=== PATIENT | male | born 1935 | race Caucasian/White ===

== ENCOUNTER → 2016-06-22 | Outpatient (CLI) | payer OTHER ==
[~2016-06-22] MED LIST: ANTIVERT/2525 MG PO; ANTIVERT25 MG PO; ASPI-COR81 M1 PO; ASPIRIN81 M1 PO; ASPIRIN81 MG PO; ATARAX25 MG PO; ATENOLOL25 MG PO; AZITHROMYC1 GM/PACKE PO; B12,B-12,B 12500 MC1 PO; BACTRIM DS 8001 TA1 PO; BD ULTRA-FINE I1 DE4 SC; COUMADIN5 M2 PO; COUMADIN5 MG PO; FLOMAX0.4 MG PO; GABAPENTIN300 MG PO; GLUCOPHAGE1000 MG PO; HYDR25T PO; IMDUR60 MG PO; ISOSORBIDE DINI30 MG PO; ISOSORBIDE DINIT5 MG PO; ISOSORBIDE MONO60 MG PO; JANUVIA50 MG PO; LEVOFLOXACIN500 MG PO; LEVOTHROID0.112 MG PO; LEVOTHYROXIN0.112 MG PO; LEVOTHYROXIN0.125 MG PO; LEVOTHYROXINE0.1 MG PO; LEVOXYL0.137 MG PO; LISINOPRIL10 MG PO; LISINOPRIL5 MG PO; LOMOTIL 0.025 M1 TA1 PO; MEDROL DOSEPAK4 MG PO; METFORMIN1000 MG PO; METFORMIN750 M1 PO; MICRO-K8 MEQ PO; NEURONTIN300 MG PO; NORCO 325 MG-51 TAB PO; NOVOLOG FLEX100 U/ML SC; OMEPRAZOLE MAGN20 MG PO; PLAVIX75 MG PO; PROPAFENONE HC150 MG PO; SERTRALINE100 MG PO; SIMVASTATIN10 MG PO; SIMVASTATIN20 MG PO; SIMVASTATIN40 MG PO; SYNTHROID0.112 MG PO; SYNTHROID0.137 MG PO; TRAMADOL HCL50 MG PO; TRAMADOL HYDROC50 MG PO; TRICOR48 MG PO; VITAMIN D1000 IU PO; VOLTAREN11 TD; XARELTO10 PO; ZOCOR40 MG PO; ZOFRAN ODT4 MG SL; ZOLOFT100 MG PO; Zestril,Prinivil5 MG PO; eye drops
[2016-06-22 09:59] LABS: INTERNATIONAL NORM RATIO 1.9 (2.0-3.5); PROTHROMBIN TIME 20.1 SECONDS (9.0-12.4)
== END | disposition home or self-care (01) ==
LOC: LAB 08:50
PROVIDERS: Internal Medicine Cardiovascular Disease
DX: I48.0 Paroxysmal atrial fibrillation (principal); I48.91 Unspecified atrial fibrillation

== ENCOUNTER → 2016-09-21 | Outpatient (CLI) | payer OTHER ==
[2016-09-21 09:40] LABS: BASO % 0.1 % (0.0-1.0); EOS # 0.1 10*3/uL (0.0-0.4); HEMATOCRIT 38.4 % (42.0-52.0); IG # 0.2 10*3/uL (0.0-0.1); LYMPH # 2.8 10*3/uL (1.3-4.4); LYMPH % 40.3 % (27.0-41.0); MEAN CORPUSCULAR HGB CONC 31.3 g/dl (33.0-37.0); MEAN PLATELET VOLUME 11.7 fl (9.6-12.3); MONO # 0.6 10*3/uL (0.1-1.0); MONO % 8.3 % (3.0-9.0); NEUT # 3.3 10*3/uL (2.3-7.9); NEUT % 47.6 % (47.0-73.0); PLATELET COUNT AUTOMATED 131 10*3/uL (130-400); RED CELL DISTRI WIDTH 13.7 % (0-14.5)
[2016-09-21 10:07] LABS: HEMOGLOBIN A1c 8.3 % (4.8-5.6)
[2016-09-21 10:12] LABS: ALBUMIN 3.7 gm/dl (3.1-4.5); BILIRUBIN, TOTAL 0.4 mg/dl (0.2-1.0); POTASSIUM 4.3 mmol/L (3.5-5.1); TOTAL PROTEIN 7.5 gm/dL (6.4-8.2)
[2016-09-21 10:19] LABS: THYROID STIM HORMONE (HS) 3.78 uIU/ml (0.358-4.75)
[2016-09-21 10:20] LABS: INTERNATIONAL NORM RATIO 2.6 (2.0-3.5); PROTHROMBIN TIME 29.7 SECONDS (9.0-12.4)
== END | disposition home or self-care (01) ==
LOC: LAB 09:12
PROVIDERS: Internal Medicine Cardiovascular Disease
DX: E03.9 Hypothyroidism, unspecified (principal); N18.3 Chronic kidney disease, stage 3 (moderate); E11.22 Type 2 diabetes mellitus with diabetic chronic kidney disease; I48.0 Paroxysmal atrial fibrillation; Z95.0 Presence of cardiac pacemaker

== ENCOUNTER → 2016-10-24 | Outpatient (CLI) | payer OTHER ==
[2016-10-24 09:15] LABS: INTERNATIONAL NORM RATIO 2.3 (2.0-3.5); PROTHROMBIN TIME 25.3 SECONDS (9.0-12.4)
== END | disposition home or self-care (01) ==
LOC: LAB 08:02
PROVIDERS: Internal Medicine Cardiovascular Disease
DX: I48.0 Paroxysmal atrial fibrillation (principal); I48.91 Unspecified atrial fibrillation

== ENCOUNTER → 2016-11-28 | Outpatient (CLI) | payer OTHER ==
[2016-11-28 10:54] LABS: INTERNATIONAL NORM RATIO 2.5 (2.0-3.5); PROTHROMBIN TIME 28.2 SECONDS (9.0-12.4)
== END | disposition home or self-care (01) ==
LOC: LAB 08:01
PROVIDERS: Internal Medicine Hematology & Oncology
DX: I48.0 Paroxysmal atrial fibrillation (principal)

== ENCOUNTER → 2016-12-21 | Outpatient (CLI) | payer OTHER ==
[2016-12-21 10:07] LABS: INTERNATIONAL NORM RATIO 2.5 (2.0-3.5); PROTHROMBIN TIME 28.1 SECONDS (9.0-12.4)
== END | disposition home or self-care (01) ==
LOC: LAB 08:54
PROVIDERS: Internal Medicine Cardiovascular Disease
DX: I48.0 Paroxysmal atrial fibrillation (principal); I48.91 Unspecified atrial fibrillation

== ENCOUNTER → 2017-01-19 | Outpatient (CLI) | payer OTHER ==
[2017-01-19 09:45] LABS: INTERNATIONAL NORM RATIO 2.1 (2.0-3.5); PROTHROMBIN TIME 23.3 SECONDS (9.0-12.4)
== END | disposition home or self-care (01) ==
LOC: LAB 08:58
PROVIDERS: Internal Medicine Cardiovascular Disease
DX: I48.0 Paroxysmal atrial fibrillation (principal)

== ENCOUNTER → 2017-01-31 | Outpatient (CLI) | payer OTHER ==
[2017-01-31 09:51] LABS: HEMOGLOBIN A1c 8.5 % (4.8-5.6)
[2017-01-31 10:06] LABS: ALBUMIN 3.5 gm/dl (3.1-4.5); BILIRUBIN, TOTAL 0.3 mg/dl (0.2-1.0); POTASSIUM 5.1 mmol/L (3.5-5.1); TOTAL PROTEIN 7.5 gm/dL (6.4-8.2)
== END | disposition home or self-care (01) ==
LOC: LAB 09:12
PROVIDERS: Family Medicine
DX: Z12.5 Encounter for screening for malignant neoplasm of prostate (principal); E11.9 Type 2 diabetes mellitus without complications

== ENCOUNTER → 2017-02-22 | Outpatient (CLI) | payer OTHER ==
[2017-02-22 08:57] LABS: INTERNATIONAL NORM RATIO 2.2 (2.0-3.5)
== END | disposition home or self-care (01) ==
LOC: LAB 07:26
PROVIDERS: Internal Medicine Cardiovascular Disease
DX: Z79.01 Long term (current) use of anticoagulants (principal)

== ENCOUNTER → 2017-03-08 | Outpatient (CLI) | payer OTHER ==
[2017-03-08 10:26] LABS: HEMATOCRIT 41.8 % (42.0-52.0)
[2017-03-08 10:52] LABS: BILIRUBIN NEGATIVE (NEGATIVE); BLOOD NEGATIVE (NEGATIVE); CLARITY CLEAR (CLEAR); COLOR YELLOW (YELLOW); GLUCOSE NEGATIVE (NEGATIVE); KETONE NEGATIVE (NEGATIVE); LEUKO ESTERASE NEGATIVE (NEGATIVE); NITRITE NEGATIVE (NEGATIVE); UROBILINOGEN 0.2 E.U./dl (0.2-1.0)
[2017-03-08 10:53] LABS: CREATININE 1.94 mg/dL (0.70-1.30); MAGNESIUM 2.3 mg/dL (1.5-2.1); PHOSPHOROUS 3.7 mg/dL (2.5-4.9); POTASSIUM 4.4 mmol/L (3.5-5.1)
[2017-03-08 10:59] LABS: BACTERIA TRACE; MUCOUS 1+
[2017-03-08 11:31] LABS: PTH INTACT 86.6 pg/mL (14.0-72.0); VITAMIN D, 25-HYDROXY 19.2 ng/mL (30-100)
== END | disposition home or self-care (01) ==
LOC: LAB 09:09
PROVIDERS: Internal Medicine Nephrology
DX: N18.3 Chronic kidney disease, stage 3 (moderate) (principal)

== ENCOUNTER → 2017-03-21 | Outpatient (CLI) | payer OTHER | END | disposition home or self-care (01) | LOC: US 13:56 | DX: N18.3 Chronic kidney disease, stage 3 (moderate) (principal) ==

== ENCOUNTER → 2017-03-22 | Outpatient (CLI) | payer OTHER ==
[2017-03-22 15:10] LABS: INTERNATIONAL NORM RATIO 2.4 (2.0-3.5)
== END | disposition home or self-care (01) ==
LOC: LAB 14:16
PROVIDERS: Internal Medicine Cardiovascular Disease
DX: Z79.01 Long term (current) use of anticoagulants (principal)

== ENCOUNTER → 2017-05-25 | Outpatient (CLI) | payer OTHER ==
[2017-05-25 09:12] LABS: INTERNATIONAL NORM RATIO 2.2 (2.0-3.5)
== END | disposition home or self-care (01) ==
LOC: LAB 08:19
PROVIDERS: Internal Medicine Cardiovascular Disease
DX: Z79.01 Long term (current) use of anticoagulants (principal)

== ENCOUNTER → 2017-06-20 | Outpatient (CLI) | payer OTHER ==
[2017-06-20 07:48] LABS: HEMATOCRIT 39.8 % (42.0-52.0); HEMOGLOBIN 12.4 g/dl (14.0-18.0); MEAN CELL VOLUME 95.2 fl (80.0-94.0); MEAN CORPUSCULAR HGB 29.7 pg (27.0-31.0); MEAN CORPUSCULAR HGB CONC 31.2 g/dl (33.0-37.0); MEAN PLATELET VOLUME 12.1 fl (9.6-12.3); RED BLOOD COUNT 4.18 10*6/uL (4.50-5.90); RED CELL DISTRI WIDTH 14.5 % (0-14.5); WHITE BLOOD COUNT 7.9 10*3/uL (4.8-10.8)
[2017-06-20 08:46] LABS: INTERNATIONAL NORM RATIO 2.3 (2.0-3.5)
[2017-06-20 08:53] LABS: ALBUMIN 3.7 gm/dl (3.1-4.5); CREATININE 1.69 mg/dL (0.70-1.30); POTASSIUM 4.1 mmol/L (3.5-5.1); TOTAL PROTEIN 7.8 gm/dL (6.4-8.2)
[2017-06-20 08:59] LABS: THYROID STIM HORMONE (HS) 9.54 uIU/ml (0.358-4.75)
[2017-06-21 07:05] LABS: CREATININE,URINE 122.9 mg/dL (Not Estab.); MICRO ALBUMIN/CRE RATIO 32.8 (0.0-30.0)
== END | disposition home or self-care (01) ==
LOC: LAB 07:27
PROVIDERS: Internal Medicine Cardiovascular Disease; Registered Nurse Flight
DX: I12.9 Hypertensive chronic kidney disease with stage 1 through stage 4 chronic kidney disease, or unspecified chronic kidney disease (principal); N18.3 Chronic kidney disease, stage 3 (moderate); E11.22 Type 2 diabetes mellitus with diabetic chronic kidney disease; E03.9 Hypothyroidism, unspecified; I48.91 Unspecified atrial fibrillation; E55.9 Vitamin D deficiency, unspecified; Z79.01 Long term (current) use of anticoagulants

== ENCOUNTER 2017-07-02 12:22 | Inpatient (IN) | payer OTHER ==
[~2017-07-02] VITALS: Ht 175.2 cm; Wt 97.6 kg
[2017-07-02] VITALS (8 sets, daily range): BP systolic 129–170; BP diastolic 47–80
[~2017-07-02 12:22] MED LIST changes: -LEVOXYL0.137 MG PO; +LEVOXYL112 MCG PO
[2017-07-02] MEDS ORDERED: TENORMIN25 MG PO (12:38)
[2017-07-02] MEDS ORDERED: LISINOPRIL10 M1 PO (12:38)
[2017-07-02] MEDS ORDERED: VITAMIN D400 I1 PO (12:40)
[2017-07-02] MEDS ORDERED: COUMADIN4 M2 PO (12:41)
[2017-07-02 13:14] LABS: HEMATOCRIT 41.5 % (42.0-52.0); HEMOGLOBIN 13.4 g/dl (14.0-18.0); MEAN CORPUSCULAR HGB 29.1 pg (27.0-31.0); MEAN CORPUSCULAR HGB CONC 32.3 g/dl (33.0-37.0); MEAN PLATELET VOLUME 13.1 fl (9.6-12.3); PLATELET COUNT AUTOMATED 107 10*3/uL (130-400); RED BLOOD COUNT 4.61 10*6/uL (4.50-5.90); RED CELL DISTRI WIDTH 14.5 % (0-14.5); WHITE BLOOD COUNT 26.1 10*3/uL (4.8-10.8)
[2017-07-02 13:23] LABS: ACT PARTIAL THROMBO TIME 40.2 SECONDS (20.8-31.5); INTERNATIONAL NORM RATIO 2.3 (2.0-3.5)
[2017-07-02 13:32] LABS: TOTAL CELLS COUNTED 100 #CELLS
[2017-07-02 13:33] LABS: PLATELET SUFFICIENCY LOW (NORMAL)
[2017-07-02 13:35] LABS: ALBUMIN 3.4 gm/dl (3.1-4.5); ALKALINE PHOSPHATASE 88 U/L (45-117); BUN 36 mg/dl (7-24); CHLORIDE 98 mmol/L (98-107); CREATININE 1.83 mg/dL (0.70-1.30); POTASSIUM 4.1 mmol/L (3.5-5.1); SGOT/AST 34 IU/L (3-35); SGPT/ALT 46 U/L (12-78); SODIUM 132 mmol/L (136-145); TOTAL PROTEIN 8.2 gm/dL (6.4-8.2); TROPONIN I < 0.015 ng/ml (<0.045)
[2017-07-03] VITALS: BP 103/61; BP 146/67
[2017-07-03 07:24] LABS: HEMOGLOBIN 11.6 g/dl (14.0-18.0); MEAN CELL VOLUME 91.7 fl (80.0-94.0); MEAN CORPUSCULAR HGB 30.1 pg (27.0-31.0); MEAN CORPUSCULAR HGB CONC 32.9 g/dl (33.0-37.0); MEAN PLATELET VOLUME 12.3 fl (9.6-12.3); PLATELET COUNT AUTOMATED 84 10*3/uL (130-400); RED BLOOD COUNT 3.85 10*6/uL (4.50-5.90); RED CELL DISTRI WIDTH 14.6 % (0-14.5); WHITE BLOOD COUNT 15.8 10*3/uL (4.8-10.8)
[2017-07-03 07:37] LABS: HEMATOCRIT 35.3 % (42.0-52.0)
[2017-07-03 07:47] LABS: PLATELET SUFFICIENCY LOW (NORMAL); TOTAL CELLS COUNTED 100 #CELLS
[2017-07-03 07:48] LABS: ROULEAUX SLIGHT
[2017-07-03 07:51] LABS: INTERNATIONAL NORM RATIO 2.8 (2.0-3.5)
[2017-07-03 07:52] LABS: ALBUMIN 2.6 gm/dl (3.1-4.5); BUN 31 mg/dl (7-24); CHLORIDE 104 mmol/L (98-107); CHOLESTEROL 118 mg/dL (<200); CREATININE 1.33 mg/dL (0.70-1.30); PHOSPHOROUS 2.2 mg/dL (2.5-4.9); POTASSIUM 3.7 mmol/L (3.5-5.1); SGOT/AST 27 IU/L (3-35); SGPT/ALT 30 U/L (12-78); SODIUM 137 mmol/L (136-145); TRIGLYCERIDES 114 mg/dl (<150); VLDL CHOLESTEROL 23 mg/dL (6-40)
[2017-07-03 07:59] LABS: ALKALINE PHOSPHATASE 76 U/L (45-117); HDL CHOLESTEROL 27 mg/dl (40-60); LDL CHOLESTEROL 68 mg/dL (9-159); THYROID STIM HORMONE (HS) 0.786 uIU/ml (0.358-4.75)
[2017-07-03 08:00] VITALS: BP 151/68
[2017-07-03 08:26] LABS: VITAMIN D, 25-HYDROXY 16.7 ng/mL (30-100)
[2017-07-03 12:00] VITALS: BP 121/60
[2017-07-03 16:00] VITALS: BP 110/55
[2017-07-03 20:00] VITALS: BP 121/69
[2017-07-04] VITALS: BP 130/69
[2017-07-04 07:27] LABS: HEMOGLOBIN 10.7 g/dl (14.0-18.0); MEAN CELL VOLUME 91.6 fl (80.0-94.0); MEAN CORPUSCULAR HGB 28.8 pg (27.0-31.0); MEAN CORPUSCULAR HGB CONC 31.5 g/dl (33.0-37.0); MEAN PLATELET VOLUME 12.5 fl (9.6-12.3); PLATELET COUNT AUTOMATED 96 10*3/uL (130-400); RED BLOOD COUNT 3.71 10*6/uL (4.50-5.90); RED CELL DISTRI WIDTH 14.6 % (0-14.5); WHITE BLOOD COUNT 8.5 10*3/uL (4.8-10.8)
[2017-07-04 07:55] LABS: BUN 33 mg/dl (7-24); CHLORIDE 107 mmol/L (98-107); CREATININE 1.31 mg/dL (0.70-1.30); PHOSPHOROUS 2.7 mg/dL (2.5-4.9); POTASSIUM 4.1 mmol/L (3.5-5.1); SODIUM 135 mmol/L (136-145)
[2017-07-04 08:00] VITALS: BP 155/75
[2017-07-04 08:20] LABS: PLATELET SUFFICIENCY LOW (NORMAL); TOTAL CELLS COUNTED 100 #CELLS
[2017-07-04 12:00] VITALS: BP 156/61
[2017-07-04 16:00] VITALS: BP 120/89
[2017-07-04 20:00] VITALS: BP 141/87
[2017-07-05] VITALS: BP 160/87
[2017-07-05 04:00] VITALS: BP 145/55
[2017-07-05 07:38] LABS: HEMATOCRIT 36.5 % (42.0-52.0); HEMOGLOBIN 11.6 g/dl (14.0-18.0); MEAN CELL VOLUME 91.7 fl (80.0-94.0); MEAN CORPUSCULAR HGB 29.1 pg (27.0-31.0); MEAN CORPUSCULAR HGB CONC 31.8 g/dl (33.0-37.0); MEAN PLATELET VOLUME 12.9 fl (9.6-12.3); PLATELET COUNT AUTOMATED 116 10*3/uL (130-400); RED BLOOD COUNT 3.98 10*6/uL (4.50-5.90); RED CELL DISTRI WIDTH 14.5 % (0-14.5); WHITE BLOOD COUNT 8.6 10*3/uL (4.8-10.8)
[2017-07-05 07:47] LABS: BUN 33 mg/dl (7-24); CHLORIDE 103 mmol/L (98-107); CREATININE 1.32 mg/dL (0.70-1.30); POTASSIUM 4.5 mmol/L (3.5-5.1); SODIUM 134 mmol/L (136-145)
[2017-07-05 07:48] LABS: INTERNATIONAL NORM RATIO 4.5 (2.0-3.5)
[2017-07-05 08:00] VITALS: BP 166/87
[2017-07-05 08:13] LABS: PLATELET SUFFICIENCY LOW (NORMAL); TOTAL CELLS COUNTED 100 #CELLS
[2017-07-05 10:19] LABS: BILIRUBIN NEGATIVE (NEGATIVE); BLOOD 2+ (NEGATIVE); CLARITY CLEAR (CLEAR); COLOR YELLOW (YELLOW); GLUCOSE 3+ (NEGATIVE); KETONE NEGATIVE (NEGATIVE); LEUKO ESTERASE NEGATIVE (NEGATIVE); NITRITE NEGATIVE (NEGATIVE); SPECIFIC GRAVITY 1.015 (1.005-1.030); UROBILINOGEN 0.2 E.U./dl (0.2-1.0)
[2017-07-05 10:39] LABS: BACTERIA TRACE
[2017-07-05 12:00] VITALS: BP 162/80
[2017-07-05] MEDS ORDERED: JANUVIA100 MG PO (13:07)
[2017-07-05] MEDS ORDERED: DOXYCYCLINE100 M3 PO (13:07)
== END 2017-07-05 15:01 | disposition home health service (06) | DRG 682 ==
LOC: ED 12:22 → 4E 16:11 → EDHOLD 16:11 → 4E 16:15
PROVIDERS: Emergency Medicine; Internal Medicine; Internal Medicine Hospice and Palliative Medicine; Student in an Organized Health Care Education/Training Program
DX: N17.9 Acute kidney failure, unspecified (principal); J18.9 Pneumonia, unspecified organism; E43 Unspecified severe protein-calorie malnutrition; D68.9 Coagulation defect, unspecified; E11.65 Type 2 diabetes mellitus with hyperglycemia; D68.59 Other primary thrombophilia; D69.6 Thrombocytopenia, unspecified; I13.0 Hypertensive heart and chronic kidney disease with heart failure and stage 1 through stage 4 chronic kidney disease, or unspecified chronic kidney disease; E87.2 Acidosis; E87.1 Hypo-osmolality and hyponatremia; J44.0 Chronic obstructive pulmonary disease with (acute) lower respiratory infection; F33.9 Major depressive disorder, recurrent, unspecified; J44.1 Chronic obstructive pulmonary disease with (acute) exacerbation; I50.22 Chronic systolic (congestive) heart failure; I48.0 Paroxysmal atrial fibrillation; S80.212A Abrasion, left knee, initial encounter; E86.0 Dehydration; N18.3 Chronic kidney disease, stage 3 (moderate); B37.2 Candidiasis of skin and nail; E66.9 Obesity, unspecified; I25.10 Atherosclerotic heart disease of native coronary artery without angina pectoris; T45.515A Adverse effect of anticoagulants, initial encounter; I67.9 Cerebrovascular disease, unspecified; K76.0 Fatty (change of) liver, not elsewhere classified; K21.9 Gastro-esophageal reflux disease without esophagitis; D72.829 Elevated white blood cell count, unspecified; D64.9 Anemia, unspecified; E03.9 Hypothyroidism, unspecified; N40.0 Benign prostatic hyperplasia without lower urinary tract symptoms; E78.5 Hyperlipidemia, unspecified; Z96.652 Presence of left artificial knee joint; W18.39XA Other fall on same level, initial encounter; E83.39 Other disorders of phosphorus metabolism; Z98.61 Coronary angioplasty status; Z88.0 Allergy status to penicillin; Z91.048 Other nonmedicinal substance allergy status; Z79.899 Other long term (current) drug therapy; Z79.82 Long term (current) use of aspirin; Z95.0 Presence of cardiac pacemaker; Z87.440 Personal history of urinary (tract) infections; Z90.49 Acquired absence of other specified parts of digestive tract; Z95.1 Presence of aortocoronary bypass graft; Z79.01 Long term (current) use of anticoagulants; Y92.89 Other specified places as the place of occurrence of the external cause; Z87.891 Personal history of nicotine dependence; Z83.3 Family history of diabetes mellitus; Y93.89 Activity, other specified; Y99.8 Other external cause status; Z68.31 Body mass index [BMI] 31.0-31.9, adult

== ENCOUNTER → 2017-08-24 | Outpatient (CLI) | payer OTHER ==
[~2017-08-24] MED LIST changes: +COUMADIN4 M2 PO; +DOXYCYCLINE100 M3 PO; +JANUVIA100 MG PO; +LISINOPRIL10 M1 PO; +TENORMIN25 MG PO; +VITAMIN D400 I1 PO
[2017-08-24 09:42] LABS: INTERNATIONAL NORM RATIO 2.2 (2.0-3.5)
== END | disposition home or self-care (01) ==
LOC: LAB 08:36
PROVIDERS: Internal Medicine Cardiovascular Disease
DX: Z51.81 Encounter for therapeutic drug level monitoring (principal); Z79.01 Long term (current) use of anticoagulants

== ENCOUNTER → 2017-09-29 | Outpatient (CLI) | payer OTHER ==
[2017-09-29 13:19] LABS: INTERNATIONAL NORM RATIO 1.7 (2.0-3.5)
== END | disposition home or self-care (01) ==
LOC: LAB 12:09 → US 13:30
PROVIDERS: Internal Medicine Cardiovascular Disease
DX: I65.23 Occlusion and stenosis of bilateral carotid arteries (principal); E11.9 Type 2 diabetes mellitus without complications; I10 Essential (primary) hypertension; I25.10 Atherosclerotic heart disease of native coronary artery without angina pectoris; Z87.891 Personal history of nicotine dependence; Z95.5 Presence of coronary angioplasty implant and graft; Z79.01 Long term (current) use of anticoagulants

== ENCOUNTER → 2017-10-24 | Outpatient (CLI) | payer OTHER | END | disposition home or self-care (01) | LOC: CARD 13:54 | DX: R55 Syncope and collapse (principal) ==

== ENCOUNTER → 2017-11-30 | Outpatient (CLI) | payer OTHER ==
[2017-11-30 10:24] LABS: BILIRUBIN NEGATIVE (NEGATIVE); BLOOD NEGATIVE (NEGATIVE); CLARITY SL CLOUDY (CLEAR); COLOR YELLOW (YELLOW); GLUCOSE NEGATIVE (NEGATIVE); KETONE NEGATIVE (NEGATIVE); LEUKO ESTERASE 1+ (NEGATIVE); NITRITE NEGATIVE (NEGATIVE); SPECIFIC GRAVITY 1.015 (1.005-1.030); UROBILINOGEN 0.2 E.U./dl (0.2-1.0)
[2017-11-30 10:34] LABS: BASO % 0.3 % (0.0-1.0); EOS % 0.4 % (1.0-4.0); HEMATOCRIT 41.7 % (42.0-52.0); HEMOGLOBIN 13.1 g/dl (14.0-18.0); LYMPH # 2.5 10*3/uL (1.3-4.4); LYMPH % 33.4 % (27.0-41.0); MEAN CELL VOLUME 92.5 fl (80.0-94.0); MEAN CORPUSCULAR HGB CONC 31.4 g/dl (33.0-37.0); MEAN PLATELET VOLUME 12.5 fl (9.6-12.3); MONO # 0.7 10*3/uL (0.1-1.0); MONO % 9.9 % (3.0-9.0); NEUT # 4.1 10*3/uL (2.3-7.9); NEUT % 54.5 % (47.0-73.0); PLATELET COUNT AUTOMATED 115 10*3/uL (130-400); RED BLOOD COUNT 4.51 10*6/uL (4.50-5.90); RED CELL DISTRI WIDTH 13.7 % (0-14.5); WHITE BLOOD COUNT 7.5 10*3/uL (4.8-10.8)
[2017-11-30 10:54] LABS: ALBUMIN 3.8 gm/dl (3.1-4.5); CREATININE 1.56 mg/dL (0.70-1.30); POTASSIUM 4.5 mmol/L (3.5-5.1); TOTAL PROTEIN 8.2 gm/dL (6.4-8.2)
[2017-11-30 10:59] LABS: THYROID STIM HORMONE (HS) 5.65 uIU/ml (0.358-4.75)
[2017-11-30 11:09] LABS: BACTERIA 2+; WBC 16-20 wbc/hpf (0-5)
[2017-11-30 12:20] LABS: PTH INTACT 59.2 pg/mL (14.0-72.0); VITAMIN D, 25-HYDROXY 41.5 ng/mL (30-100)
[2017-12-01 10:07] LABS: CREATININE,URINE 101.4 mg/dL (Not Estab.); MICRO ALBUMIN/CRE RATIO 13.1 (0.0-30.0)
== END | disposition home or self-care (01) ==
LOC: LAB 09:44
PROVIDERS: Internal Medicine Nephrology
DX: E11.22 Type 2 diabetes mellitus with diabetic chronic kidney disease (principal); N18.3 Chronic kidney disease, stage 3 (moderate); E78.2 Mixed hyperlipidemia; E03.9 Hypothyroidism, unspecified

== ENCOUNTER → 2018-06-29 | Outpatient (CLI) | payer OTHER ==
[2018-06-29 08:28] LABS: HEMATOCRIT 42.3 % (42.0-52.0); HEMOGLOBIN 12.9 g/dl (14.0-18.0)
[2018-06-29 08:56] LABS: ALBUMIN 3.4 gm/dl (3.1-4.5); CREATININE 1.72 mg/dL (0.70-1.30); POTASSIUM 4.8 mmol/L (3.5-5.1); TOTAL PROTEIN 7.9 gm/dL (6.4-8.2)
[2018-06-29 09:03] LABS: THYROID STIM HORMONE (HS) 3.11 uIU/ml (0.358-4.75)
[2018-06-29 09:46] LABS: BILIRUBIN NEGATIVE (NEGATIVE); BLOOD TRACE-INTACT (NEGATIVE); CLARITY CLOUDY (CLEAR); COLOR YELLOW (YELLOW); GLUCOSE 2+ (NEGATIVE); KETONE NEGATIVE (NEGATIVE); LEUKO ESTERASE 2+ (NEGATIVE); NITRITE NEGATIVE (NEGATIVE); UROBILINOGEN 0.2 E.U./dl (0.2-1.0)
[2018-06-29 10:18] LABS: VITAMIN D, 25-HYDROXY 28.8 ng/mL (30-100)
[2018-06-29 10:23] LABS: BACTERIA TRACE; WBC TNTC wbc/hpf (0-5)
[2018-06-30 09:12] LABS: CREATININE,URINE 106.3 mg/dL (Not Estab.); MICRO ALBUMIN/CRE RATIO 32.5 (0.0-30.0)
== END | disposition home or self-care (01) ==
LOC: LAB 07:26
PROVIDERS: Internal Medicine Nephrology; Registered Nurse Flight
DX: E78.2 Mixed hyperlipidemia (principal); E03.9 Hypothyroidism, unspecified; E11.22 Type 2 diabetes mellitus with diabetic chronic kidney disease; N18.3 Chronic kidney disease, stage 3 (moderate)

== ENCOUNTER 2018-09-26 13:01 | Inpatient (IN) | payer OTHER ==
[~2018-09-26] VITALS: Ht 175.2 cm; Wt 99.9 kg
--- NOTE | ~2018-09-26 | EKG ---
[place], [place] ELECTROCARDIOGRAM REPORT NAME: MYKE CHAPMAN UNIT #: [id number] ROOM: 402 DOCTOR: ALTAGRACIA DRAFT REPORT BIRTHDATE: [birth year] [facility] Test Date: 2018-09-26 Test Time: 20:42:46 Pat Name: MYKE CHAPMAN Department: Room: 402 Gender: M Enrollment Coordinator: Stefanie Hill : 1935 Requested By: MISAEL NAYAK Order Number: [id number] Reading MD: Sandra Xiao Measurements Intervals [place] Rate: 76 P: [place]: QRS: -10 QRSD: 117 T: 93 QT: 429 QTc: 483 Interpretive Statements Afib/flutter Intermittent V-paced complexes No further rhythm analysis attempted due to paced rhythm Nonspecific intraventricular conduction delay Probable anteroseptal infarct, old Nonspecific repol abnormality, diffuse leads Baseline wander in lead(s) V3,V4 Compared to ECG 09/07/2018 13:27:56 Myocardial infarct finding now present Early repolarization now present T-wave abnormality no longer present Possible ischemia no longer present Electronically Signed On 09-28-2018 11:02:08 PDT by Sanrda Xiao CM:EKGRPT:ELECTROCARDIOGRAM REPORT 41 110 MISAEL CORTES DRAFT REPORT MISAEL NAYAK DO
--- NOTE | ~2018-09-26 | EKG ---
[place], [place] ELECTROCARDIOGRAM REPORT NAME: MYKE CHAPMAN UNIT #: [id number] ROOM: 402 DOCTOR: ALTAGRACIA DRAFT REPORT BIRTHDATE: [birth year] [facility] Test Date: 2018-09-26 Test Time: 13:07:09 Pat Name: MYKE CHAPMAN Department: Room: 402 Gender: M Systems Software Developer: : 1935 Requested By: MISAEL NAYAK Order Number: [id number] Reading MD: Sandra Xiao Measurements Intervals [place] Rate: 77 P: MD: QRS: 7 QRSD: 145 T: 159 QT: 415 QTc: 470 Interpretive Statements Afib/flutter Intermittent Ventricular paced Baseline wander in lead(s) V2 Compared to ECG 09/07/2018 13:27:56 T-wave abnormality no longer present Possible ischemia no longer present Electronically Signed On 09-28-2018 10:53:45 PDT by Sandra Xiao CM:EKGRPT:ELECTROCARDIOGRAM REPORT 1307 1053 MISAEL CORTES DRAFT REPORT MISAEL NAYAK DO
--- NOTE | ~2018-09-26 | EKG ---
[place], [place] ELECTROCARDIOGRAM REPORT NAME: MYKE CHAPMAN UNIT #: [id number] ROOM: 402 DOCTOR: ALTAGRACIA DRAFT REPORT BIRTHDATE: [birth year] [facility] Test Date: 2018-09-26 Test Time: 15:50:08 Pat Name: MYKE CHAPMAN Department: Room: 402 Gender: M Supervisor Mold Shop: Stefanie Hill : 1935 Requested By: MISAEL NAYAK Order Number: [id number] Reading MD: Sandra Xiao Measurements Intervals [place] Rate: 71 P: [place]: QRS: -5 QRSD: 116 T: 63 QT: 423 QTc: 460 Interpretive Statements Afib/flutter Intermittent Ventricular paced Incomplete left bundle branch block Baseline wander in lead(s) V1 Compared to ECG 09/07/2018 13:27:56 T-wave abnormality no longer present Possible ischemia no longer present Electronically Signed On 09-28-2018 10:55:17 PDT by Sandra Xiao CM:EKGRPT:ELECTROCARDIOGRAM REPORT 1550 1055 MISAEL CORTES DRAFT REPORT MISAEL NAYAK DO
[~2018-09-26 13:01] MED LIST changes: -CLOPIDOGREL75 MG PO; -LASIX20 MG PO; -LYRICA150 M1 PO; -NEURONTIN100 MG PO; -ZOLOFT50 MG PO
[2018-09-26 13:07] VITALS: BP 134/78
[2018-09-26 13:36] LABS: BASO % 0.4 % (0.0-1.0); EOS % 0.4 % (1.0-4.0); HEMATOCRIT 37.8 % (42.0-52.0); HEMOGLOBIN 11.5 g/dl (14.0-18.0); LYMPH # 2.2 10*3/uL (1.3-4.4); LYMPH % 38.7 % (27.0-41.0); MEAN CELL VOLUME 96.4 fl (80.0-94.0); MEAN CORPUSCULAR HGB 29.3 pg (27.0-31.0); MEAN CORPUSCULAR HGB CONC 30.4 g/dl (33.0-37.0); MEAN PLATELET VOLUME 12.5 fl (9.6-12.3); MONO # 0.3 10*3/uL (0.1-1.0); MONO % 6.1 % (3.0-9.0); NEUT % 53.7 % (47.0-73.0); PLATELET COUNT AUTOMATED 153 10*3/uL (130-400); RED BLOOD COUNT 3.92 10*6/uL (4.50-5.90); RED CELL DISTRI WIDTH 15.9 % (0-14.5); WHITE BLOOD COUNT 5.6 10*3/uL (4.8-10.8)
[2018-09-26 13:54] LABS: ACT PARTIAL THROMBO TIME 35.6 SECONDS (20.8-31.5); INTERNATIONAL NORM RATIO 2.3 (2.0-3.5)
[2018-09-26 13:56] LABS: ALBUMIN 3.4 gm/dl (3.1-4.5); ALKALINE PHOSPHATASE 60 U/L (45-117); BUN 25 mg/dl (7-24); CHLORIDE 103 mmol/L (98-107); CREATININE 1.49 mg/dL (0.70-1.30); POTASSIUM 4.1 mmol/L (3.5-5.1); SGOT/AST 9 IU/L (3-35); SGPT/ALT 15 U/L (12-78); SODIUM 139 mmol/L (136-145); TOTAL PROTEIN 7.7 gm/dL (6.4-8.2)
[2018-09-26 13:58] LABS: TROPONIN I < 0.015 ng/ml (<0.045)
[2018-09-26 15:03] VITALS: BP 127/75
[2018-09-26 16:00] VITALS: BP 133/75
[2018-09-26 16:55] VITALS: BP 133/75
[2018-09-26 20:00] VITALS: BP 134/77
[2018-09-27] VITALS: BP 125/70
[2018-09-27 05:58] LABS: BASO % 0.3 % (0.0-1.0); EOS % 0.4 % (1.0-4.0); HEMATOCRIT 39.1 % (42.0-52.0); LYMPH # 2.5 10*3/uL (1.3-4.4); LYMPH % 36.9 % (27.0-41.0); MEAN CELL VOLUME 94.7 fl (80.0-94.0); MEAN CORPUSCULAR HGB 29.1 pg (27.0-31.0); MEAN CORPUSCULAR HGB CONC 30.7 g/dl (33.0-37.0); MEAN PLATELET VOLUME 12.8 fl (9.6-12.3); MONO # 0.9 10*3/uL (0.1-1.0); NEUT # 3.3 10*3/uL (2.3-7.9); NEUT % 48.7 % (47.0-73.0); PLATELET COUNT AUTOMATED 135 10*3/uL (130-400); RED BLOOD COUNT 4.13 10*6/uL (4.50-5.90); RED CELL DISTRI WIDTH 15.8 % (0-14.5); WHITE BLOOD COUNT 6.8 10*3/uL (4.8-10.8)
[2018-09-27 06:30] LABS: ALBUMIN 3.5 gm/dl (3.1-4.5); CREATININE 1.58 mg/dL (0.70-1.30); POTASSIUM 4.1 mmol/L (3.5-5.1)
[2018-09-27 06:38] LABS: FREE T4 1.48 ng/dl (0.76-1.46); THYROID STIM HORMONE (HS) 2.62 uIU/ml (0.358-4.75); TOTAL PROTEIN 7.9 gm/dL (6.4-8.2)
--- NOTE | 2018-09-27 07:46 | NUR ---
PHYSICAL THERAPY Nursing screen received. PT orders also received. Thank you. Emilia Ball,PT
--- NOTE | 2018-09-27 09:10 | NUR ---
Occupational Therapy evaluation completed on 4 with full eval to follow. Precautions include fall risk, SOB w/ min exertion, wh walker use, IV UE, low complexity level 89645 via chart review, testing and evaluation. Recommend OT per POC and return home with granddaughter assist and home health SN, OT,PT. Thank you. Jillian Guerrero OTR/l
--- NOTE | 2018-09-27 09:11 | NUR ---
PHYSICAL THERAPY Patient evaluated on 4, full evaluation to follow. Continue with PT as per plan of care with fall and acute debility precautions. Home with family (A) [facility] RN and PT recommended. PAtient is moderate complexity via chart review, tests and evaluation: [id number]. Thank you for this referral. Emilia Ball,PT
--- NOTE | 2018-09-27 11:36 | NUR ---
AMANDA RAPP FOR C/O BACKACHE. WILL MONITOR.
--- NOTE | 2018-09-27 11:45 | NUR ---
Bridge Club Manager in to talk to patient. Patient states lives at home with . There are few steps in the home. Physician: [facility] Pharmacy: [facility] health services: none Patient's level of ADLs: MINIMAL ASSIST Patient has working utilities: all working DME: walker, cane Follow-up physician's appointment after d/c: will be made by hospitalist nurse director upon discharge Does patient want to access PORTAL?: no Discharge plan discussed with patient, patient lives at home with his , granddaughter present, stated patient's is out of town helping her daughter and they granddaughter will be staying with patient when he is discharged, he has a cane and walker to use if needed, discussed with them [facility] and both declined any services at this time. case management will follow for any needs. IMAN SORENSEN
[2018-09-27 12:00] VITALS: BP 104/62
[2018-09-27] MEDS ORDERED: NEURONTIN100 MG PO ×2 (15:45→15:48)
[2018-09-27] MEDS ORDERED: TENORMIN25 MG PO (15:48)
[2018-09-27] MEDS ORDERED: ZOCOR40 MG PO (15:48)
[2018-09-27] MEDS ORDERED: CLOPIDOGREL75 MG PO (15:48)
[2018-09-27] MEDS ORDERED: COUMADIN4 M2 PO (15:48)
[2018-09-27] MEDS ORDERED: LEVOXYL112 MCG PO (15:48)
[2018-09-27] MEDS ORDERED: B12,B-12,B 12500 MC1 PO (15:48)
[2018-09-27] MEDS ORDERED: JANUVIA100 MG PO (15:48)
[2018-09-27] MEDS ORDERED: VITAMIN D400 I1 PO (15:48)
[2018-09-27] MEDS ORDERED: LASIX20 MG PO (15:49)
[2018-09-27] MEDS ORDERED: ZOLOFT50 MG PO ×2 (15:53)
--- NOTE | 2018-09-27 16:30 | NUR ---
PT CHOSE [facility]. REFERRAL FAXED.
--- NOTE | 2018-09-27 16:39 | NUR ---
CCDIS Discharge instructions reviewed with patient/family. Patient receptive and verbalizes understanding. Follow-up care arranged. Written instructions given to patient/family. RUDI GOMES
== END 2018-09-27 16:39 | disposition home health service (06) | DRG 292 ==
LOC: ED 13:01 → EDHOLD 15:08 → 4E 15:08
PROVIDERS: Emergency Medicine; Student in an Organized Health Care Education/Training Program; ADMIT Internal Medicine
DX: I13.0 Hypertensive heart and chronic kidney disease with heart failure and stage 1 through stage 4 chronic kidney disease, or unspecified chronic kidney disease (principal); D68.59 Other primary thrombophilia; E44.1 Mild protein-calorie malnutrition; E87.2 Acidosis; I50.9 Heart failure, unspecified; I48.91 Unspecified atrial fibrillation; N40.0 Benign prostatic hyperplasia without lower urinary tract symptoms; I25.10 Atherosclerotic heart disease of native coronary artery without angina pectoris; R07.89 Other chest pain; E11.65 Type 2 diabetes mellitus with hyperglycemia; E55.9 Vitamin D deficiency, unspecified; N18.3 Chronic kidney disease, stage 3 (moderate); F32.9 Major depressive disorder, single episode, unspecified; D64.9 Anemia, unspecified; E11.22 Type 2 diabetes mellitus with diabetic chronic kidney disease; Z96.651 Presence of right artificial knee joint; K21.9 Gastro-esophageal reflux disease without esophagitis; E66.9 Obesity, unspecified; E78.5 Hyperlipidemia, unspecified; E03.9 Hypothyroidism, unspecified; J44.9 Chronic obstructive pulmonary disease, unspecified; Z88.0 Allergy status to penicillin; Z91.048 Other nonmedicinal substance allergy status; Z95.0 Presence of cardiac pacemaker; Z95.5 Presence of coronary angioplasty implant and graft; Z90.49 Acquired absence of other specified parts of digestive tract; Z95.1 Presence of aortocoronary bypass graft; Z83.3 Family history of diabetes mellitus; Z79.82 Long term (current) use of aspirin; Z79.01 Long term (current) use of anticoagulants; Z68.32 Body mass index [BMI] 32.0-32.9, adult

== ENCOUNTER → 2018-09-26 | Outpatient (CLI) | payer OTHER ==
[~2018-09-26] MED LIST changes: +CLOPIDOGREL75 MG PO; +IMDUR SA30 MG PO; +LASIX20 MG PO; +LISINOPRIL2.5 MG PO; +LYRICA150 M1 PO; +NEURONTIN100 MG PO; +SERTRALINE HYDR50 MG PO; +ZOLOFT50 MG PO
== END | disposition home or self-care (01) ==
LOC: RESCLI 02:36
DX: Z09 Encounter for follow-up examination after completed treatment for conditions other than malignant neoplasm (principal); I12.9 Hypertensive chronic kidney disease with stage 1 through stage 4 chronic kidney disease, or unspecified chronic kidney disease; E11.22 Type 2 diabetes mellitus with diabetic chronic kidney disease; E11.42 Type 2 diabetes mellitus with diabetic polyneuropathy; N18.3 Chronic kidney disease, stage 3 (moderate); R07.9 Chest pain, unspecified; I25.10 Atherosclerotic heart disease of native coronary artery without angina pectoris; M79.2 Neuralgia and neuritis, unspecified; F32.9 Major depressive disorder, single episode, unspecified; I48.0 Paroxysmal atrial fibrillation; E78.5 Hyperlipidemia, unspecified; E03.9 Hypothyroidism, unspecified; E55.9 Vitamin D deficiency, unspecified; E53.8 Deficiency of other specified B group vitamins; K21.9 Gastro-esophageal reflux disease without esophagitis; J44.9 Chronic obstructive pulmonary disease, unspecified; Z87.891 Personal history of nicotine dependence; Z90.49 Acquired absence of other specified parts of digestive tract; Z95.1 Presence of aortocoronary bypass graft; Z88.0 Allergy status to penicillin; Z91.048 Other nonmedicinal substance allergy status

== ENCOUNTER 2018-11-12 12:17 | Inpatient (IN) | payer OTHER ==
[~2018-11-12] VITALS: Ht 175.3 cm; Wt 109.3 kg
[2018-11-12] VITALS (8 sets, daily range): BP systolic 124–145; BP diastolic 67–94
--- NOTE | ~2018-11-12 | EKG ---
[place], [place] ELECTROCARDIOGRAM REPORT NAME: MYKE CHAPMAN UNIT #: [id number] ROOM: 506 DOCTOR: ALTAGRACIA DRAFT REPORT BIRTHDATE: [address] [facility] Test Date: 2018-11-12 Test Time: 12:15:52 Pat Name: MYKE CHAPMAN Department: Room: 506 Gender: M Central Office Supervisor: : 1935 Requested By: MISAEL NAYAK Order Number: [id number] Reading MD: Sandra Xiao Measurements Intervals [place] Rate: 73 P: [place]: QRS: 44 QRSD: 102 T: -47 QT: 419 QTc: 462 Interpretive Statements A fib V-paced complexes Compared to ECG 09/26/2018 20:42:46 Low QRS voltage now present T-wave abnormality now present ST (T wave) deviation now present Intraventricular conduction delay no longer present Myocardial infarct finding no longer present Early repolarization no longer present Electronically Signed On 11-14-2018 13:25:05 PDT by Sandra Xiao CM:EKGRPT:ELECTROCARDIOGRAM REPORT 1215 1325 MISAEL CORTES DRAFT REPORT MISAEL NAYAK DO
--- NOTE | ~2018-11-12 | EKG ---
[place], [place] ELECTROCARDIOGRAM REPORT NAME: MYKE CHAPMAN UNIT #: [id number] ROOM: 506 DOCTOR: ALTAGRACIA DRAFT REPORT BIRTHDATE: [birth year] [facility] Test Date: 2018-11-12 Test Time: 14:52:11 Pat Name: MYKE CHAPMAN Department: Room: 506 Gender: M Inspector Welded Parts: Stefanie Hill : 1935 Requested By: MISAEL NAYAK Order Number: [id number] Reading MD: Sandra Xiao Measurements Intervals [place] Rate: 81 P: -1 DE: 226 QRS: 20 QRSD: 110 T: 101 QT: 412 QTc: 479 Interpretive Statements A fib Intermittent Ventricular-paced ue to paced rhythm Borderline prolonged DE interval Borderline low voltage, extremity leads Nonspecific repol abnormality, diffuse leads Baseline wander in lead(s) I,II,aVR,V1,V6 Compared to ECG 09/26/2018 20:42:46 ST (T wave) deviation now present Intraventricular conduction delay no longer present Myocardial infarct finding still present Electronically Signed On 11-14-2018 13:34:57 PDT by Sandra Xiao CM:EKGRPT:ELECTROCARDIOGRAM REPORT 1452 1334 MISAEL CORTES DRAFT REPORT MISAEL NAYAK DO
--- NOTE | ~2018-11-12 | CON ---
[place], [place] REPORT OF CONSULTATION [id number] UNIT #: [id number] ROOM: 506 DOCTOR: JOHN ZAIDIMINI BIRTHDATE: [birth year] DOS: 11/13/2018 HISTORY OF PRESENT ILLNESS: The patient is very well known to me with a history of permanent pacemaker, previous myocardial infarction, history of diastolic heart failure. Apparently, admitted with increasing shortness of breath. The patient was seen recently and he was doing quite well. Recent stress test has not shown any significant coronary artery disease. The patient admitted with increasing shortness of breath. Apparently for some reason in the clinic, his Lasix has been discontinued and since that time, he has been having increasing shortness of breath. The patient was given IV Lasix in the Emergency Room and he is doing quite well. Last echocardiogram showed an ejection fraction of 40-45%, thickened aortic valve. Trace aortic with tricuspid, prosthetic valve. Last stress test in 2014. PAST MEDICAL HISTORY: Significant for permanent pacemaker, atrial fibrillation, depression, hypertension, systolic congestive heart failure, and sick sinus syndrome. PAST SURGICAL HISTORY: Coronary artery disease, stent placement, bypass surgery, permanent pacemaker, and knee replacement. SOCIAL HISTORY: Not a smoker, not an alcoholic. FAMILY HISTORY: Positive for coronary artery disease. HOME MEDICATIONS: Aspirin, atenolol, clopidogrel, simvastatin, and Coumadin. REVIEW OF SYSTEMS: CONSTITUTIONAL: No fever, no chills. HEENT: No visual disturbance or hearing problems. CARDIOVASCULAR: Complains of leg edema. No chest discomfort. RESPIRATORY: Does have dyspnea on exertion. GASTROINTESTINAL: No nausea, no vomiting. GENITOURINARY: No dysuria. Hemodynamically stable. PHYSICAL EXAMINATION: VITAL SIGNS: Blood pressure is 140/70, heart rate is 76, a paced rhythm. HEENT: Elevated JVD. LUNGS: Diminished breath sounds. HEART: Sounds are regular. ABDOMEN: Soft. EXTREMITIES: About 2+ edema. NEUROLOGIC: Stable. LABORATORY DATA: Sodium 141, potassium 3.8 and creatinine is 1.3. Liver functions are normal. BNP is significantly elevated. Hemoglobin 11.2, hematocrit 36.2. IMPRESSION: The patient with acute worsening of the systolic heart failure with a known history of coronary artery disease, hypertension, chronic renal [place], [place] REPORT OF CONSULTATION NAME: MYKE CHAPMAN UNIT #: [id number] ROOM: 506 DOCTOR: JOHN ZAIDI,MINI BIRTHDATE: [birth year] insufficiency and dyslipidemia. RECOMMENDATIONS: Agree with IV diuretics, strict I's and O's, had a small dose of an JAIME inhibitor. The patient is already on a beta jason, aspirin, fluid restriction to get an echocardiogram if it is not done in 6 months and we will follow up. MINI LOPEZ MD CM:CONSTR:REPORT OF CONSULTATION 0708 11/14/18 0109 interface
--- NOTE | ~2018-11-12 | PR ---
[place], [place] PROGRESS NOTE [id number] UNIT #: [id number] ROOM: 506 DOCTOR: MINI LOPEZ MD BIRTHDATE: [birth year] DOS: 11/15/2018 SUBJECTIVE: The patient was seen on consult on Monday, doing quite well from the cardiac point of view. The patient was admitted with systolic and diastolic exacerbation of heart failure, done reasonably well from the cardiac point of view. The patient has negative 710 mL, yesterday he had 1-1/2 liters out. Leg edema significantly improved. REVIEW OF SYSTEMS: A 6-8 systems reviewed, stable. OBJECTIVE: VITAL SIGNS: Blood pressure is 120/70. He has paced rhythm. NECK: Supple, no JVD. LUNGS: Diminished breath sounds. HEART: Sounds are paced. NEUROLOGIC: Stable. EXTREMITIES: About 1+ edema. LABORATORY DATA: Shows hemoglobin of 12.4 and hematocrit of 40.4. Creatinine is 1.3. IMPRESSION: The patient with coronary artery disease, history of congestive heart failure, permanent pacemaker, and chronic renal failure. RECOMMENDATION: The patient has significantly improved. Make sure the patient is discharged on the diuretic. Increase activity. Discharge plan. MINI LOPEZ MD CM:PNTRANS 0700 0750 MINI LOPEZ MD 11/27/18 0759 interface
--- NOTE | ~2018-11-12 | EKG ---
[place], [place] ELECTROCARDIOGRAM REPORT NAME: MYKE CHAPMAN UNIT #: [id number] ROOM: 506 DOCTOR: ALTAGRACIA DRAFT REPORT BIRTHDATE: [birth year] [facility] Test Date: 2018-11-12 Test Time: 18:51:31 Pat Name: MYKE CHAPMAN Department: Room: 506 Gender: M Staff Nurse: : 1935 Requested By: MISAEL NAYAK Order Number: [id number] Reading MD: Sandra Xiao Measurements Intervals [place] Rate: 74 P: [place]: QRS: -13 QRSD: 113 T: 109 QT: 454 QTc: 504 Interpretive Statements A fib Intermittent V-paced complexes Borderline intraventricular conduction delay Nonspecific repol abnormality, diffuse leads Compared to ECG 09/26/2018 20:42:46 Myocardial infarct finding no longer present Electronically Signed On 11-14-2018 13:36:57 PDT by Sadnra Xiao CM:EKGRPT:ELECTROCARDIOGRAM REPORT 1851 1336 MISAEL CORTES DRAFT REPORT MISAEL NAYAK DO
[~2018-11-12 12:17] MED LIST changes: +CLOPIDOGREL75 MG PO; +LASIX20 MG PO; +NEURONTIN100 MG PO; +PLAVIX75 M1 PO; +ZOLOFT50 MG PO
[2018-11-12 12:57] LABS: BASO % 0.3 % (0.0-1.0); EOS % 0.5 % (1.0-4.0); HEMATOCRIT 36.2 % (42.0-52.0); HEMOGLOBIN 11.2 g/dl (14.0-18.0); LYMPH # 1.6 10*3/uL (1.3-4.4); LYMPH % 25.5 % (27.0-41.0); MEAN CELL VOLUME 94.5 fl (80.0-94.0); MEAN CORPUSCULAR HGB 29.2 pg (27.0-31.0); MEAN CORPUSCULAR HGB CONC 30.9 g/dl (33.0-37.0); MEAN PLATELET VOLUME 12.4 fl (9.6-12.3); MONO # 0.5 10*3/uL (0.1-1.0); MONO % 7.6 % (3.0-9.0); NEUT # 4.1 10*3/uL (2.3-7.9); NEUT % 65.1 % (47.0-73.0); PLATELET COUNT AUTOMATED 136 10*3/uL (130-400); RED BLOOD COUNT 3.83 10*6/uL (4.50-5.90); WHITE BLOOD COUNT 6.3 10*3/uL (4.8-10.8)
[2018-11-12 13:10] LABS: ACT PARTIAL THROMBO TIME 36.9 SECONDS (20.0-32.1); INTERNATIONAL NORM RATIO 2.1 (2.0-3.5)
[2018-11-12 13:14] LABS: ALBUMIN 3.3 gm/dl (3.1-4.5); ALKALINE PHOSPHATASE 65 U/L (45-117); BUN 19 mg/dl (7-24); CHLORIDE 109 mmol/L (98-107); POTASSIUM 3.8 mmol/L (3.5-5.1); SGOT/AST 16 IU/L (3-35); SGPT/ALT 13 U/L (12-78); SODIUM 141 mmol/L (136-145); TOTAL PROTEIN 7.2 gm/dL (6.4-8.2)
[2018-11-12 13:15] LABS: TROPONIN I < 0.015 ng/ml (<0.045)
--- NOTE | 2018-11-12 13:25 | NUR ---
AMBULATORY TO BATHROOM FOR BM. TOLERATED WELL.
--- NOTE | 2018-11-12 14:10 | NUR ---
SITTING IN BED VISITING WITH FAMILY.
--- NOTE | 2018-11-12 15:00 | NUR ---
VOIDED INTO TOILET AFTER LASIX, REMINDED PT TO USE URINAL FOR ACCURATE I&O, VERBLAIZED UNDERSTANDING.
--- NOTE | 2018-11-12 16:00 | NUR ---
A 83, admitted to , under the services of YECENIA Currie DO with a diagnosis of ACUTE HEART FAILURE. Chief complaint is CHEST PAIN AND SHORTNESS OF BREATH. Patient arrived via bed from ER. Monitor applied. Initial assessment completed. Vital signs taken and recorded. YECENIA CURRIE DO notified of admission to the unit. Orders received. See assessment for past medical history, medications and allergies. Patient and/or family oriented to unit. [facility] visitation policy reviewed. Clothing/patient valuable form completed. EMMA CUBA
[2018-11-12] MEDS ORDERED: LYRICA150 M1 PO (16:20)
--- NOTE | 2018-11-12 17:10 | NUR ---
SPOKE WITH REGARDING CONSULT; TO SEE PATIENT TOMORROW MORNING.
--- NOTE | 2018-11-12 21:28 | NUR ---
BS 218.
[2018-11-13] VITALS: BP 103/51
[2018-11-13 06:34] LABS: BASO % 0.4 % (0.0-1.0); EOS # 0.1 10*3/uL (0.0-0.4); EOS % 1.1 % (1.0-4.0); HEMATOCRIT 37.2 % (42.0-52.0); HEMOGLOBIN 11.3 g/dl (14.0-18.0); LYMPH # 2.2 10*3/uL (1.3-4.4); LYMPH % 29.3 % (27.0-41.0); MEAN CELL VOLUME 95.9 fl (80.0-94.0); MEAN CORPUSCULAR HGB 29.1 pg (27.0-31.0); MEAN CORPUSCULAR HGB CONC 30.4 g/dl (33.0-37.0); MEAN PLATELET VOLUME 12.9 fl (9.6-12.3); MONO % 13.3 % (3.0-9.0); NEUT # 4.2 10*3/uL (2.3-7.9); PLATELET COUNT AUTOMATED 139 10*3/uL (130-400); RED BLOOD COUNT 3.88 10*6/uL (4.50-5.90); RED CELL DISTRI WIDTH 15.4 % (0-14.5); WHITE BLOOD COUNT 7.6 10*3/uL (4.8-10.8)
[2018-11-13 06:44] LABS: BUN 18 mg/dl (7-24); CHLORIDE 106 mmol/L (98-107); CHOLESTEROL 107 mg/dL (<200); CREATININE 1.24 mg/dL (0.70-1.30); FREE T4 1.37 ng/dl (0.76-1.46); HDL CHOLESTEROL 33 mg/dl (40-60); LDL CHOLESTEROL 44 mg/dL (9-159); PHOSPHOROUS 3.8 mg/dL (2.5-4.9); POTASSIUM 3.5 mmol/L (3.5-5.1); SODIUM 143 mmol/L (136-145); TRIGLYCERIDES 150 mg/dl (<150); VLDL CHOLESTEROL 30 mg/dL (6-40)
[2018-11-13 07:17] LABS: INTERNATIONAL NORM RATIO 2.3 (2.0-3.5)
[2018-11-13 07:26] LABS: VITAMIN D, 25-HYDROXY 31.9 ng/mL (30-100)
--- NOTE | 2018-11-13 10:00 | NUR ---
Nuclear Plant Operator in to talk to patient. Patient states lives at home with . There are no steps in the home. Physician: [facility] Pharmacy: [facility] Home health services: has had in the past but not currently Patient's level of ADLs: MINIMAL ASSIST Patient has working utilities: yes DME: walker, cane Follow-up physician's appointment after d/c: will be made by hospitalist nurse director upon discharge Does patient want to access PORTAL?: no Discharge plan discussed with patient. He lives at home with his . He is independent in his ADLs and ambulates with a cane/walker. Discussed home health care services and he denies any home needs at his time. When medically stable he will be discharged to home. BETO UNDERWOOD
[2018-11-13 12:00] VITALS: BP 105/61; BP 134/78
--- NOTE | 2018-11-13 14:13 | NUR ---
PHYSICAL THERAPY Patient evaluated on 5, full evaluation to follow. Continue with PT as per plan of care with fall, 02, cardiac and acute debility precautions. Home with , as prior and home health RN, PT and aides prn recommended. PAtient is moderate complexity via chart review, tests and evaluation: [id number]. Thank you for this referral. Emilia Ball,PT
[2018-11-13 16:00] VITALS: BP 127/66
--- NOTE | 2018-11-13 19:15 | NUR ---
BEDSIDE REPORT OBTAINED FROM RUDI-BUTCH. PATIENT IS AWAKE AND ALERT, VOICED NO COMPLAINTS. NO DISTRESS NOTED, RESP ARE ERND ON 3LPM NC. BED IS LOCKED IN LOWEST POSITION, CALL LIGHT WITHIN REACH.
[2018-11-13 20:00] VITALS: BP 116/70
[2018-11-14] VITALS: BP 133/71
--- NOTE | 2018-11-14 02:00 | NUR ---
PATIENT SLEEPING, EYES CLOSED. CALL LIGHT WITHIN REACH
[2018-11-14 06:31] LABS: BASO % 0.2 % (0.0-1.0); EOS # 0.1 10*3/uL (0.0-0.4); HEMATOCRIT 40.4 % (42.0-52.0); HEMOGLOBIN 12.4 g/dl (14.0-18.0); LYMPH # 2.9 10*3/uL (1.3-4.4); MEAN CELL VOLUME 95.1 fl (80.0-94.0); MEAN CORPUSCULAR HGB 29.2 pg (27.0-31.0); MEAN CORPUSCULAR HGB CONC 30.7 g/dl (33.0-37.0); MEAN PLATELET VOLUME 12.3 fl (9.6-12.3); MONO # 1.1 10*3/uL (0.1-1.0); NEUT # 4.7 10*3/uL (2.3-7.9); NEUT % 52.9 % (47.0-73.0); PLATELET COUNT AUTOMATED 143 10*3/uL (130-400); RED BLOOD COUNT 4.25 10*6/uL (4.50-5.90); RED CELL DISTRI WIDTH 15.4 % (0-14.5); WHITE BLOOD COUNT 8.8 10*3/uL (4.8-10.8)
[2018-11-14 06:37] LABS: BUN 20 mg/dl (7-24); CHLORIDE 100 mmol/L (98-107); CREATININE 1.32 mg/dL (0.70-1.30); POTASSIUM 3.7 mmol/L (3.5-5.1); SODIUM 138 mmol/L (136-145)
--- NOTE | 2018-11-14 08:00 | NUR ---
SITTING UP IN CHAIR. RESP-EASY AND REGULAR. OXYGEN IN USE. NO C/O AT THIS TIME. CALL LIGHT IN REACH. SEE SHIFT ASSESSMENT.
[2018-11-14 08:30] VITALS: BP 116/70
--- NOTE | 2018-11-14 09:00 | NUR ---
Textbook Associate in to see patient. He is sitting up in his bedside chair without distress noted. Discussed home health care services as suggested by PT and he is agreeable. When provided with a list of agencies he chose [facility]. He would like to have RN/PT/aides. When medically stable he will be discharged to home with [facility] services.
--- NOTE | 2018-11-14 11:10 | NUR ---
BSG-290, SEE EMAR. NO C/O AT THIS TIME. CALL ROSEANN NAVARRETE.
[2018-11-14 12:00] VITALS: BP 90/55
--- NOTE | 2018-11-14 14:00 | NUR ---
SITTING UP IN CHAIR. RESP-EASY AND REGULAR. NO C/O AT THIS TIME. CALL LIGHT IN REACH.
[2018-11-14 16:00] VITALS: BP 112/64
--- NOTE | 2018-11-14 16:10 | NUR ---
PT SITTING UP IN RECLINER CHAIR. RESP-EASY AND REGULAR. VISITOR AT HIS SIDE. BSG-181, SEE EMAR. NO C/O AT THIS TIME. CALL LIGHT IN REACH. SEE SHIFT ASSESSMENT.
--- NOTE | 2018-11-14 18:00 | NUR ---
SITTING UP IN BED. TOLERATED ROUTINE MEDICATIONS. NO C/O AT THIS TIME. CALL LIGHT IN REACH.
[2018-11-14 20:00] VITALS: BP 122/67
--- NOTE | 2018-11-14 20:00 | NUR ---
PT SEEN AT THIS TIME. PT LAYING IN BED. NO S/S OF DISTRESS IS NOTED AT THIS TIME. NO SOB WITH NASAL CANNULA INTACT. THE BED IS IN THE LOWEST LOCKED POSITION AND CALL LIGHT WITHIN REACH. PT HAS NO COMPLAINTS AT THIS TIME. WILL CONTINUE TO MONITOR
[2018-11-15] VITALS: BP 120/70
--- NOTE | 2018-11-15 08:00 | NUR ---
RESTING IN BED. RESP-EASY AND REGULAR. NO C/O AT THIS TIME. CALL LIGHT IN REACH. SEE SHIFT ASSESSMENT.
[2018-11-15 08:10] VITALS: BP 126/78
--- NOTE | 2018-11-15 09:00 | NUR ---
Flat Sorter Processor in to see patient. No new needs or request at this time. When medically stable he will be discharged to home with [facility] services.
[2018-11-15 12:00] VITALS: BP 112/71
--- NOTE | 2018-11-15 12:00 | NUR ---
PT SITTING UP AT SIDE OF BED. BSG-216, SEE EMAR. NO C/O AT THIS TIME. CALL LIGHT IN REACH. SEE SHIFT ASSESSMENT.
--- NOTE | 2018-11-15 15:30 | NUR ---
Pt walked for a home O2 eval. Pt did not qualify for oxygen. 1530 - RA - at rest - BP 112/71 - HR 81 - SpO2 98% 1531 - RA - walking - HR 85 - SpO2 98% 1532 - RA - walking - HR 88 - SpO2 96% 1533 - RA - walking - HR 88 - SpO2 97% 1534 - RA - walking - HR 87 - SpO2 96% 1535 - RA - walking - HR 84 - SpO2 96% 1536 - RA - walking - HR 87 - SpO2 97% 1537 - RA - at rest - BP 120/74 - HR 92 - SpO2 97% Pt placed back in chair with no oxygen at this time. Call light within reach.
[2018-11-15 16:00] VITALS: BP 135/72
--- NOTE | 2018-11-15 16:00 | NUR ---
PT SITTING UP IN CHAIR. RESP-EASY AND REGULAR. BSG-149, SEE EMAR. CALL LIGHT IN REACH. SEE SHIFT ASSESSMENT.
[2018-11-15] MEDS ORDERED: LASIX20 MG PO (17:02)
--- NOTE | 2018-11-15 17:36 | NUR ---
Discharge instructions reviewed with patient/family. Patient receptive and verbalizes understanding. Follow-up care arranged. Written instructions given to patient/family. HEPLOCK REMOVED 2X2 APPLIED. MONITOR REMOVED. AVERY BYRD
--- NOTE | 2018-11-15 17:50 | NUR ---
ESCORTED VIA WHEELCHAIR FOR DISCHARGE WITH VISITOR AT HIS SIDE.
--- NOTE | 2018-11-16 09:44 | NUR ---
Spoke to Emily at [facility] regarding referral. Explained faxes are down. She stated she can get into the computer and look up his information. Informed patient wanted RN/PT/aides. Will fax face to face when completed. Notified hospitalist nurse director.
--- NOTE | 2018-11-23 12:51 | NUR ---
Faxed face to face to [facility]
== END 2018-11-15 17:50 | disposition home health service (06) | DRG 291 ==
LOC: ED 12:17 → 5E 14:37 → EDHOLD 14:37 → 5E 14:46
PROVIDERS: Emergency Medicine; Internal Medicine; ADMIT Internal Medicine
DX: I13.0 Hypertensive heart and chronic kidney disease with heart failure and stage 1 through stage 4 chronic kidney disease, or unspecified chronic kidney disease (principal); I50.43 Acute on chronic combined systolic (congestive) and diastolic (congestive) heart failure; E44.1 Mild protein-calorie malnutrition; I24.9 Acute ischemic heart disease, unspecified; D68.69 Other thrombophilia; I67.89 Other cerebrovascular disease; N18.3 Chronic kidney disease, stage 3 (moderate); K21.9 Gastro-esophageal reflux disease without esophagitis; R07.81 Pleurodynia; R79.82 Elevated C-reactive protein (CRP); E87.8 Other disorders of electrolyte and fluid balance, not elsewhere classified; E55.9 Vitamin D deficiency, unspecified; E11.65 Type 2 diabetes mellitus with hyperglycemia; E11.22 Type 2 diabetes mellitus with diabetic chronic kidney disease; E53.8 Deficiency of other specified B group vitamins; J44.9 Chronic obstructive pulmonary disease, unspecified; I25.10 Atherosclerotic heart disease of native coronary artery without angina pectoris; E11.40 Type 2 diabetes mellitus with diabetic neuropathy, unspecified; E03.9 Hypothyroidism, unspecified; K76.0 Fatty (change of) liver, not elsewhere classified; I67.9 Cerebrovascular disease, unspecified; F32.9 Major depressive disorder, single episode, unspecified; Z96.652 Presence of left artificial knee joint; I49.5 Sick sinus syndrome; I48.2 Chronic atrial fibrillation; E66.9 Obesity, unspecified; N40.0 Benign prostatic hyperplasia without lower urinary tract symptoms; D64.9 Anemia, unspecified; D72.810 Lymphocytopenia; E78.5 Hyperlipidemia, unspecified; Z95.0 Presence of cardiac pacemaker; Z95.5 Presence of coronary angioplasty implant and graft; Z95.1 Presence of aortocoronary bypass graft; Z90.49 Acquired absence of other specified parts of digestive tract; Z87.891 Personal history of nicotine dependence; Z83.3 Family history of diabetes mellitus; Z88.0 Allergy status to penicillin; Z91.09 Other allergy status, other than to drugs and biological substances; Z79.82 Long term (current) use of aspirin; Z79.899 Other long term (current) drug therapy; Z79.01 Long term (current) use of anticoagulants; Z79.02 Long term (current) use of antithrombotics/antiplatelets; I25.2 Old myocardial infarction; Z95.2 Presence of prosthetic heart valve; Z82.49 Family history of ischemic heart disease and other diseases of the circulatory system; Z68.32 Body mass index [BMI] 32.0-32.9, adult

== ENCOUNTER → 2019-01-15 | Outpatient (CLI) | payer OTHER ==
[~2019-01-15] MED LIST changes: +LYRICA150 M1 PO; -PLAVIX75 M1 PO
[2019-01-15 10:55] LABS: BASO % 0.4 % (0.0-1.0); EOS % 0.4 % (1.0-4.0); HEMATOCRIT 39.9 % (42.0-52.0); LYMPH # 1.9 10*3/uL (1.3-4.4); LYMPH % 28.7 % (27.0-41.0); MEAN CELL VOLUME 94.8 fl (80.0-94.0); MEAN CORPUSCULAR HGB 28.5 pg (27.0-31.0); MEAN CORPUSCULAR HGB CONC 30.1 g/dl (33.0-37.0); MEAN PLATELET VOLUME 11.9 fl (9.6-12.3); MONO # 0.7 10*3/uL (0.1-1.0); MONO % 10.2 % (3.0-9.0); NEUT % 58.8 % (47.0-73.0); PLATELET COUNT AUTOMATED 171 10*3/uL (130-400); RED BLOOD COUNT 4.21 10*6/uL (4.50-5.90); RED CELL DISTRI WIDTH 14.7 % (0-14.5); WHITE BLOOD COUNT 6.8 10*3/uL (4.8-10.8)
[2019-01-15 11:22] LABS: ALBUMIN 3.4 gm/dl (3.1-4.5); CREATININE 1.42 mg/dL (0.70-1.30); POTASSIUM 3.8 mmol/L (3.5-5.1); TOTAL PROTEIN 7.9 gm/dL (6.4-8.2)
[2019-01-15 13:22] LABS: BILIRUBIN NEGATIVE (NEGATIVE); BLOOD TRACE-INTACT (NEGATIVE); CLARITY CLOUDY (CLEAR); COLOR YELLOW (YELLOW); GLUCOSE NEGATIVE (NEGATIVE); KETONE NEGATIVE (NEGATIVE); LEUKO ESTERASE 3+ (NEGATIVE); NITRITE NEGATIVE (NEGATIVE); UROBILINOGEN 0.2 E.U./dl (0.2-1.0)
[2019-01-15 13:41] LABS: BACTERIA 3+; WBC TNTC wbc/hpf (0-5)
== END | disposition home or self-care (01) ==
LOC: RESCLI 00:56
PROVIDERS: Internal Medicine; Student in an Organized Health Care Education/Training Program
DX: Z12.5 Encounter for screening for malignant neoplasm of prostate (principal); E11.42 Type 2 diabetes mellitus with diabetic polyneuropathy; F32.9 Major depressive disorder, single episode, unspecified; I48.0 Paroxysmal atrial fibrillation; E78.5 Hyperlipidemia, unspecified; E03.9 Hypothyroidism, unspecified; E55.9 Vitamin D deficiency, unspecified; E53.8 Deficiency of other specified B group vitamins; R35.0 Frequency of micturition; I10 Essential (primary) hypertension; Z79.01 Long term (current) use of anticoagulants; Z79.899 Other long term (current) drug therapy

== ENCOUNTER 2019-02-09 10:53 | Inpatient (IN) | payer OTHER ==
[~2019-02-09] VITALS: Ht 175 cm; Wt 87.3 kg
--- NOTE | ~2019-02-09 | O ---
[place], [place] OPERATIVE NOTE NAME: MYKE CHAPMAN UNIT #: [id number] ROOM: 405 DOCTOR: HARPER ZAIDIGITA BIRTHDATE: [birth year] DOS: 02/11/2019 GASTROENDOSCOPIC REPORT HISTORY OF PRESENT ILLNESS: The patient has presented with chief complaint of diarrhea, epigastric distress, dyspepsia. Has stool studies negative. Urine positive for UTI, being investigated. PROCEDURE: Today's procedure part of investigation is panendoscopy and colonoscopy. PREMEDICATION: Propofol. SCOPE: Olympus forward-viewing gastroscope Q10 video. REPORT: After putting the patient in left lateral position and application of lubricant to the scope, the scope was introduced. Thereafter, under direct visualization, advanced through the length of esophagus without difficulty. Esophagus, cervical, thoracic distal within normal limits. Gastric pouch was entered. Hiatal hernia noticed. Bile reflux gastritis appreciated. Antral biopsy obtained for H. pylori. Duodenal bulb, second and third part within normal limits. The patient extubated, tolerated the procedure well. IMPRESSION: Hiatal hernia, bile reflux, gastritis. PLAN AND DISCUSSION: We are going to proceed with colonoscopy. GASTROENDOSCOPIC REPORT Investigation of diarrhea, abdominal nonspecific distress. PROCEDURE: Today's procedure part of investigation: Colonoscopy with Olympus forward-viewing colonoscope 10L video. DESCRIPTION OF PROCEDURE: After putting the patient in left lateral position and application of lubricant to the scope, the scope was introduced. Thereafter, under direct visualization, I advanced through the length of colon without difficulty. Base of the cecum explored, appendiceal orifice identified, ileocecal valve was defined. Numerous polyps in the colon was identified. They were all sessile and adenomatous character. Due to the enormity of number as well as aspirin and anticoagulants and Plavix history less than 36 hours ago, we will withhold any polypectomy was not to jeopardize possibility of bleeding and we are going to organize for colonoscopy as outpatient after he has been at least 1 week off the anticoagulants and antiplatelets. FINAL DIAGNOSES: Multiple colonic polyp in ascending, multiple colonic in polyp transverse, multiple colonic in polyp descending colon, diverticulosis of sigmoid colon. [place], [place] OPERATIVE NOTE NAME: MYKE CHAPMAN UNIT #: [id number] ROOM: 405 DOCTOR: HARPER ZAIDI,GITA BIRTHDATE: [birth year] Thank you very much indeed. GITA SALEEM MD CM:OPRECORD:OPERATIVE NOTE 1256 1357 GITA SALEEM MD 02/11/19 1358 interface
--- NOTE | ~2019-02-09 | EKG ---
[place], [place] ELECTROCARDIOGRAM REPORT NAME: MYKE CHAPMAN UNIT #: [id number] ROOM: 405 DOCTOR: ALTAGRACIA DRAFT REPORT BIRTHDATE: [birth year] [facility] Test Date: 2019-02-09 Test Time: 11:53:05 Pat Name: MYKE CHAPMAN Department: Room: 405 Gender: M Consumer Recruiter: Stefanie Hill : 1935 Requested By: CECI COSTA Order Number: [id number] Reading MD: Sandra Xiao Measurements Intervals [place] Rate: 87 P: [place]: QRS: -25 QRSD: 113 T: 111 QT: 394 QTc: 474 Interpretive Statements Atrial fibrillation Abnormal R-wave progression, late transition LVH with IVCD and secondary repol abnrm Compared to ECG 11/12/2018 18:51:31 Left ventricular hypertrophy now present Ventricular-paced complex(es) or rhythm no longer present Electronically Signed On 02-09-2019 12:38:30 PDT by Sandra Xiao CM:EKGRPT:ELECTROCARDIOGRAM REPORT 1153 1238 CECI FRIAS DRAFT REPORT CECI COSTA MD
--- NOTE | ~2019-02-09 | EKG ---
[place], [place] ELECTROCARDIOGRAM REPORT NAME: MYKE CHAPMAN UNIT #: [id number] ROOM: 405 DOCTOR: ALTAGRACIA DRAFT REPORT BIRTHDATE: [birth year] [facility] Test Date: 2019-02-09 Test Time: 17:45:15 Pat Name: MYKE CHAPMAN Department: Room: 405 Gender: M Senior Quality Assurance Analyst: Stefanie Hill : 1935 Requested By: CECI COSTA Order Number: [id number] Reading MD: Sandra Xiao Measurements Intervals [place] Rate: 78 P: [place]: QRS: -30 QRSD: 115 T: 86 QT: 415 QTc: 473 Interpretive Statements Afib/flut and V-paced complexes No further rhythm analysis attempted due to paced rhythm Nonspecific intraventricular conduction delay Borderline repolarization abnormality Baseline wander in lead(s) V5 Compared to ECG 02/09/2019 11:53:05 Left ventricular hypertrophy no longer present Electronically Signed On 02-10-2019 9:11:52 PDT by Sandra Xiao CM:EKGRPT:ELECTROCARDIOGRAM REPORT 1745 0911 CECI FRIAS DRAFT REPORT CECI COSTA MD
--- NOTE | ~2019-02-09 | EKG ---
[place], [place] ELECTROCARDIOGRAM REPORT NAME: MYKE CHAPMAN UNIT #: [id number] ROOM: 405 DOCTOR: ALTAGRACIA DRAFT REPORT BIRTHDATE: [birth year] [facility] Test Date: 2019-02-09 Test Time: 15:15:24 Pat Name: MYKE CHAPMAN Department: Room: 405 Gender: M Supervisor Put[employer]uk[employer]: Stefanie Hill : 1935 Requested By: CECI COSTA Order Number: [id number] Reading MD: Sandra Xiao Measurements Intervals [place] Rate: 86 P: MT: QRS: -32 QRSD: 110 T: 114 QT: 395 QTc: 473 Interpretive Statements Atrial fibrillation LVH with IVCD and secondary repol abnrm Compared to ECG 11/12/2018 18:51:31 Left ventricular hypertrophy now present Ventricular-paced complex(es) or rhythm no longer present Electronically Signed On 02-10-2019 9:11:44 PDT by Sandra Xiao CM:EKGRPT:ELECTROCARDIOGRAM REPORT 1515 0911 CECI FRIAS DRAFT REPORT CECI COSTA MD
--- NOTE | ~2019-02-09 | CON ---
[place], [place] REPORT OF CONSULTATION NAME: MYKE CHAPMAN UNIT #: [id number] ROOM: 405 DOCTOR: HARPER ZAIDI,GITA BIRTHDATE: [birth year] DOS: 02/11/2019 HISTORY OF PRESENT ILLNESS: An 83-year-old patient who has presented with chief complaint of diarrhea, abdominal pain and cramp, and undergoing investigation. His INR was 1.6 at the time of admission. CBC: H and H of 13 and 42, differential within normal limit. Comprehensive metabolic panel: BUN and creatinine 31 and 1.6, potassium 3.3 on 24th it was corrected. His chest x-ray, no acute pathology was seen. His urine cultures, greater than 100,000 bacteria. Blood cultures were negative. H and H dropped to 12 and 41+. His troponin is normal. PAST MEDICAL HISTORY: Associated with coronary artery disease, BPH, atrial fibrillation, COPD, depression, GERD, hyperlipidemia, and diabetes. PAST SURGICAL HISTORY: Cardiac pacemaker, left knee, cholecystectomy, and CABG. SOCIAL HISTORY: Past smoker. Nonalcohol consumer. FAMILY HISTORY: Noncontributory. ALLERGIES: PENICILLIN AND TAPE. MEDICATIONS: List has been reviewed, has been including aspirin and clopidogrel that has been placed on hold. REVIEW OF SYSTEMS: HEENT: Denies double vision, blurred vision. RESPIRATORY: Denies acute shortness of breath. CARDIOVASCULAR: Denies acute chest pain. DIGESTIVE SYSTEM: Abdominal pain, epigastric distress, diarrhea. PHYSICAL EXAMINATION: VITAL SIGNS: Stable. HEENT: Within normal limit. NECK: Supple. No thyromegaly. No cervical lymphadenopathy. CHEST: Symmetric anatomy, equal expansion. No wheeze, no rhonchi. HEART: Irregular irregularity. ABDOMEN: Soft. No hepato-organomegaly. Bowel sounds present. No pulsatile mass. EXTREMITIES: No cyanosis, no pedal edema. NEUROLOGIC: Alert, oriented to time, place, and person. LABORATORY DATA: Reviewed. Records reviewed. IMPRESSION: Nausea, vomiting, diarrhea, abdominal pain, cramp, and hypokalemia. OTHER ADJUNCTIVE DIAGNOSES: As outlined above. PLAN AND DISCUSSION: We are going to proceed with EGD and colonoscopy. [place], [place] REPORT OF CONSULTATION NAME: MYKE CHAPMAN UNIT #: [id number] ROOM: 405 DOCTOR: HARPER ZAIDI,GITA BIRTHDATE: [birth year] GITA SALEEM MD CM:CONSTR:REPORT OF CONSULTATION 1217 02/22/19 1003 interface
[~2019-02-09 10:53] MED LIST changes: +PLAVIX75 M1 PO
[2019-02-09 10:59] VITALS: BP 127/63
[2019-02-09 12:00] LABS: BASO % 0.3 % (0.0-1.0); EOS # 0.1 10*3/uL (0.0-0.4); EOS % 0.8 % (1.0-4.0); HEMATOCRIT 42.6 % (42.0-52.0); HEMOGLOBIN 13.5 g/dl (14.0-18.0); LYMPH # 2.1 10*3/uL (1.3-4.4); LYMPH % 27.4 % (27.0-41.0); MEAN CELL VOLUME 92.2 fl (80.0-94.0); MEAN CORPUSCULAR HGB 29.2 pg (27.0-31.0); MEAN CORPUSCULAR HGB CONC 31.7 g/dl (33.0-37.0); MONO # 0.8 10*3/uL (0.1-1.0); NEUT # 4.6 10*3/uL (2.3-7.9); PLATELET COUNT AUTOMATED 106 10*3/uL (130-400); RED BLOOD COUNT 4.62 10*6/uL (4.50-5.90); RED CELL DISTRI WIDTH 15.2 % (0-14.5); WHITE BLOOD COUNT 7.6 10*3/uL (4.8-10.8)
[2019-02-09 12:13] LABS: ACT PARTIAL THROMBO TIME 33.8 SECONDS (20.0-32.1); INTERNATIONAL NORM RATIO 1.6 (2.0-3.5)
[2019-02-09 12:19] LABS: ALBUMIN 3.7 gm/dl (3.1-4.5); ALKALINE PHOSPHATASE 73 U/L (45-117); BUN 31 mg/dl (7-24); CHLORIDE 105 mmol/L (98-107); CREATININE 1.62 mg/dL (0.70-1.30); POTASSIUM 3.3 mmol/L (3.5-5.1); SGOT/AST 16 IU/L (3-35); SGPT/ALT 15 U/L (12-78); SODIUM 138 mmol/L (136-145); TOTAL PROTEIN 8.1 gm/dL (6.4-8.2)
[2019-02-09 12:21] LABS: TROPONIN I < 0.015 ng/ml (<0.045)
[2019-02-09 14:06] VITALS: BP 128/64
[2019-02-09] MEDS ORDERED: OMEPRAZOLE D/R20 MG PO (14:27)
[2019-02-09] MEDS ORDERED: VITAMIN D3400 UNIT PO (14:29)
[2019-02-09 14:30] VITALS: BP 127/78
[2019-02-09 16:00] VITALS: BP 101/53
[2019-02-09 20:00] VITALS: BP 116/69
[2019-02-10] VITALS: BP 118/72
[2019-02-10 06:16] LABS: BASO % 0.3 % (0.0-1.0); EOS % 0.7 % (1.0-4.0); HEMATOCRIT 39.1 % (42.0-52.0); HEMOGLOBIN 11.9 g/dl (14.0-18.0); LYMPH # 2.1 10*3/uL (1.3-4.4); LYMPH % 34.9 % (27.0-41.0); MEAN CELL VOLUME 94.9 fl (80.0-94.0); MEAN CORPUSCULAR HGB 28.9 pg (27.0-31.0); MEAN CORPUSCULAR HGB CONC 30.4 g/dl (33.0-37.0); MEAN PLATELET VOLUME 12.3 fl (9.6-12.3); MONO # 0.7 10*3/uL (0.1-1.0); MONO % 12.1 % (3.0-9.0); NEUT # 3.1 10*3/uL (2.3-7.9); NEUT % 51.3 % (47.0-73.0); PLATELET COUNT AUTOMATED 84 10*3/uL (130-400); RED BLOOD COUNT 4.12 10*6/uL (4.50-5.90); RED CELL DISTRI WIDTH 15.4 % (0-14.5); WHITE BLOOD COUNT 6.1 10*3/uL (4.8-10.8)
[2019-02-10 06:51] LABS: BUN 22 mg/dl (7-24); CHLORIDE 112 mmol/L (98-107); CREATININE 1.37 mg/dL (0.70-1.30); SODIUM 142 mmol/L (136-145)
[2019-02-10 08:00] VITALS: BP 130/66
[2019-02-10 11:29] LABS: BILIRUBIN NEGATIVE (NEGATIVE); BLOOD 1+ (NEGATIVE); CLARITY CLOUDY (CLEAR); COLOR YELLOW (YELLOW); GLUCOSE NEGATIVE (NEGATIVE); KETONE NEGATIVE (NEGATIVE); LEUKO ESTERASE 3+ (NEGATIVE); NITRITE NEGATIVE (NEGATIVE); UROBILINOGEN 0.2 E.U./dl (0.2-1.0)
[2019-02-10 11:47] LABS: RBC TNTC rbc/hpf (0-2); WBC TNTC wbc/hpf (0-5)
[2019-02-10 13:00] VITALS: BP 107/67
[2019-02-10 16:46] VITALS: BP 110/62
[2019-02-11] VITALS (7 sets, daily range): BP systolic 106–115; BP diastolic 42–92
[2019-02-11 06:53] LABS: BASO % 0.3 % (0.0-1.0); EOS # 0.1 10*3/uL (0.0-0.4); EOS % 0.5 % (1.0-4.0); HEMATOCRIT 41.8 % (42.0-52.0); HEMOGLOBIN 12.7 g/dl (14.0-18.0); LYMPH # 3.2 10*3/uL (1.3-4.4); LYMPH % 34.4 % (27.0-41.0); MEAN CELL VOLUME 95.2 fl (80.0-94.0); MEAN CORPUSCULAR HGB 28.9 pg (27.0-31.0); MEAN CORPUSCULAR HGB CONC 30.4 g/dl (33.0-37.0); MEAN PLATELET VOLUME 12.5 fl (9.6-12.3); MONO # 1.1 10*3/uL (0.1-1.0); MONO % 11.3 % (3.0-9.0); PLATELET COUNT AUTOMATED 98 10*3/uL (130-400); RED BLOOD COUNT 4.39 10*6/uL (4.50-5.90); RED CELL DISTRI WIDTH 15.2 % (0-14.5); WHITE BLOOD COUNT 9.4 10*3/uL (4.8-10.8)
[2019-02-11 07:22] LABS: INTERNATIONAL NORM RATIO 1.5 (2.0-3.5)
[2019-02-11 07:25] LABS: POTASSIUM 3.4 mmol/L (3.5-5.1)
[2019-02-11 07:28] LABS: CREATININE 1.45 mg/dL (0.70-1.30)
[2019-02-12] VITALS: BP 108/46
[2019-02-12 08:00] VITALS: BP 114/77; BP 130/68
[2019-02-12 12:00] VITALS: BP 106/65
== END 2019-02-12 15:32 | disposition home or self-care (01) | DRG 690 ==
LOC: ED 10:53 → EDHOLD 13:25 → 4E 13:25
PROVIDERS: Emergency Medicine; Family Medicine; ADMIT Internal Medicine
PROC: 0DB68ZX Excision of Stomach, Via Natural or Artificial Opening Endoscopic, Diagnostic (ICD-10-PCS; principal; 2019-02-11)
PROC: 0DBE8ZX Excision of Large Intestine, Via Natural or Artificial Opening Endoscopic, Diagnostic (ICD-10-PCS; principal; 2019-02-11)
DX: N39.0 Urinary tract infection, site not specified (principal); I13.0 Hypertensive heart and chronic kidney disease with heart failure and stage 1 through stage 4 chronic kidney disease, or unspecified chronic kidney disease; I50.22 Chronic systolic (congestive) heart failure; K52.9 Noninfective gastroenteritis and colitis, unspecified; E86.0 Dehydration; K29.70 Gastritis, unspecified, without bleeding; K44.9 Diaphragmatic hernia without obstruction or gangrene; N40.0 Benign prostatic hyperplasia without lower urinary tract symptoms; N18.3 Chronic kidney disease, stage 3 (moderate); K21.9 Gastro-esophageal reflux disease without esophagitis; Z96.652 Presence of left artificial knee joint; E78.5 Hyperlipidemia, unspecified; E03.9 Hypothyroidism, unspecified; K57.30 Diverticulosis of large intestine without perforation or abscess without bleeding; R31.9 Hematuria, unspecified; J44.9 Chronic obstructive pulmonary disease, unspecified; D12.6 Benign neoplasm of colon, unspecified; F32.9 Major depressive disorder, single episode, unspecified; E11.22 Type 2 diabetes mellitus with diabetic chronic kidney disease; E11.65 Type 2 diabetes mellitus with hyperglycemia; R79.1 Abnormal coagulation profile; E11.42 Type 2 diabetes mellitus with diabetic polyneuropathy; E78.00 Pure hypercholesterolemia, unspecified; I25.10 Atherosclerotic heart disease of native coronary artery without angina pectoris; E87.6 Hypokalemia; D69.6 Thrombocytopenia, unspecified; I48.91 Unspecified atrial fibrillation; Z79.01 Long term (current) use of anticoagulants; Z79.84 Long term (current) use of oral hypoglycemic drugs; Z95.0 Presence of cardiac pacemaker; Z95.5 Presence of coronary angioplasty implant and graft; Z88.0 Allergy status to penicillin; Z79.82 Long term (current) use of aspirin; Z79.899 Other long term (current) drug therapy; Z90.49 Acquired absence of other specified parts of digestive tract; Z83.3 Family history of diabetes mellitus

== ENCOUNTER → 2019-03-06 | Day surgery (SDC) | payer OTHER ==
[~2019-03-06] VITALS: Ht 175.2 cm; Wt 108.9 kg
[~2019-03-06] MED LIST changes: +OMEPRAZOLE D/R20 MG PO; +VITAMIN D3400 UNIT PO
--- NOTE | ~2019-03-06 | O ---
[place], [place] OPERATIVE NOTE NAME: MYKE CHAPMAN UNIT #: [id number] ROOM: DOCTOR: GITA SALEEM MD BIRTHDATE: [birth year] DOS: 03/06/2019 SUBJECTIVE: An 83-year-old patient who has presented with chief complaint of history of colonic polyp and abdominal pain. ALLERGIES: PENICILLIN AND ADHESIVE. PAST MEDICAL HISTORY: Hypertension, diabetes mellitus, hypercholesterolemia, coronary artery disease. PAST SURGICAL HISTORY: , left inguinal hernia, right leg pains. PROCEDURE: Today's procedure part of investigation is colonoscopy. PREMEDICATION: Propofol. SCOPE: Olympus forward-viewing colonoscope 10L video. REPORT: After putting the patient in left lateral position and application of lubricant to the scope, the scope was introduced. Thereafter, under direct visualization, advanced through the length of colon without difficulty. Diverticulosis was appreciated 6 polyps, 3 from the descending, 3 from ascending colon with snare was polypectomized. Base of the cecum explored. Upon orifice identified, ileocecal valve was defined. The patient was gradually extubated and tolerated the procedure well. IMPRESSION: Diverticulosis, 6 colonic polyps, 3 in the ascending, 3 in the descending colon, status post snare polypectomy. PLAN AND DISCUSSION: This patient does not require future colonoscopy. We are going to for the next 3 days hold aspirin, Plavix and Coumadin and resume thereafter. GITA SALEEM MD CM:OPRECORD:OPERATIVE NOTE 0921 [id number] GITA SALEEM MD 03/06/19 1041 interface
[2019-03-06 08:11] VITALS: BP 148/67
[2019-03-06 09:10] VITALS: BP 90/41
[2019-03-06 09:24] VITALS: BP 107/53
[2019-03-06 09:39] VITALS: BP 113/61
== END | disposition home or self-care (01) ==
LOC: SDC 03-01 10:15
DX: D12.2 Benign neoplasm of ascending colon (principal); D12.4 Benign neoplasm of descending colon; I10 Essential (primary) hypertension; E11.9 Type 2 diabetes mellitus without complications; E78.00 Pure hypercholesterolemia, unspecified; I25.10 Atherosclerotic heart disease of native coronary artery without angina pectoris; K57.30 Diverticulosis of large intestine without perforation or abscess without bleeding; J44.9 Chronic obstructive pulmonary disease, unspecified; K21.9 Gastro-esophageal reflux disease without esophagitis; Z98.890 Other specified postprocedural states; Z86.010 Personal history of colon polyps

== ENCOUNTER → 2019-03-08 | Outpatient (CLI) | payer OTHER | END | disposition home or self-care (01) | LOC: RESCLI 00:34 | DX: E78.5 Hyperlipidemia, unspecified (principal); I25.10 Atherosclerotic heart disease of native coronary artery without angina pectoris; F32.9 Major depressive disorder, single episode, unspecified; I48.0 Paroxysmal atrial fibrillation; E03.9 Hypothyroidism, unspecified; E55.9 Vitamin D deficiency, unspecified; E53.8 Deficiency of other specified B group vitamins; E11.42 Type 2 diabetes mellitus with diabetic polyneuropathy; I13.0 Hypertensive heart and chronic kidney disease with heart failure and stage 1 through stage 4 chronic kidney disease, or unspecified chronic kidney disease; E11.22 Type 2 diabetes mellitus with diabetic chronic kidney disease; I50.22 Chronic systolic (congestive) heart failure; N18.3 Chronic kidney disease, stage 3 (moderate) ==

== ENCOUNTER → 2019-03-28 | Outpatient (CLI) | payer OTHER ==
[~2019-03-28] MED LIST changes: +NORCO 5-325 TA1 EACH PO
== END | disposition home or self-care (01) ==
LOC: RESCLI 02:18
PROVIDERS: Student in an Organized Health Care Education/Training Program
DX: I25.10 Atherosclerotic heart disease of native coronary artery without angina pectoris (principal); E11.42 Type 2 diabetes mellitus with diabetic polyneuropathy; F32.9 Major depressive disorder, single episode, unspecified; I48.0 Paroxysmal atrial fibrillation; E78.5 Hyperlipidemia, unspecified; E03.9 Hypothyroidism, unspecified; E55.9 Vitamin D deficiency, unspecified; E53.8 Deficiency of other specified B group vitamins; K21.9 Gastro-esophageal reflux disease without esophagitis; R35.0 Frequency of micturition; I12.9 Hypertensive chronic kidney disease with stage 1 through stage 4 chronic kidney disease, or unspecified chronic kidney disease; E11.22 Type 2 diabetes mellitus with diabetic chronic kidney disease; N18.3 Chronic kidney disease, stage 3 (moderate); Z79.899 Other long term (current) drug therapy; Z79.01 Long term (current) use of anticoagulants

== ENCOUNTER → 2019-04-05 | Outpatient (CLI) | payer OTHER ==
[2019-04-05 13:23] LABS: INTERNATIONAL NORM RATIO 1.9 (2.0-3.5)
== END | disposition home or self-care (01) ==
LOC: LAB 12:51
PROVIDERS: Internal Medicine
DX: Z79.01 Long term (current) use of anticoagulants (principal)

== ENCOUNTER 2019-04-16 10:14 | Emergency (ER) | payer OTHER ==
[~2019-04-16] VITALS: Ht 175.2 cm; Wt 78.0 kg
[~2019-04-16 10:14] MED LIST changes: -NORCO 5-325 TA1 EACH PO
[2019-04-16 10:16] VITALS: BP 114/66
[2019-04-16] MEDS ORDERED: NORCO 5-325 TA1 EACH PO (11:56)
== END 2019-04-16 11:59 | disposition home or self-care (01) ==
LOC: ED 10:14
DX: S40.012A Contusion of left shoulder, initial encounter (principal); Z88.0 Allergy status to penicillin; Z91.048 Other nonmedicinal substance allergy status; Z79.899 Other long term (current) drug therapy; Z79.01 Long term (current) use of anticoagulants; Z79.82 Long term (current) use of aspirin; Z87.891 Personal history of nicotine dependence; X50.1XXA Overexertion from prolonged static or awkward postures, initial encounter; Y93.89 Activity, other specified; Y92.098 Other place in other non-institutional residence as the place of occurrence of the external cause; Y99.8 Other external cause status

== ENCOUNTER → 2019-04-18 | Outpatient (CLI) | payer OTHER ==
[~2019-04-18] MED LIST changes: +NORCO 5-325 TA1 EACH PO
[2019-04-18 14:10] LABS: INTERNATIONAL NORM RATIO 1.3 (2.0-3.5)
== END | disposition home or self-care (01) ==
LOC: LAB 00:34
PROVIDERS: Student in an Organized Health Care Education/Training Program
DX: Z79.01 Long term (current) use of anticoagulants (principal)

== ENCOUNTER → 2019-04-25 | Outpatient (CLI) | payer OTHER ==
[2019-04-25 10:45] LABS: INTERNATIONAL NORM RATIO 2.1 (2.0-3.5)
== END | disposition home or self-care (01) ==
LOC: LAB 00:30
PROVIDERS: Student in an Organized Health Care Education/Training Program
DX: Z79.01 Long term (current) use of anticoagulants (principal)

== ENCOUNTER → 2019-05-02 | Outpatient (CLI) | payer OTHER | END | disposition home or self-care (01) | LOC: LAB 00:51 | PROVIDERS: Student in an Organized Health Care Education/Training Program | DX: Z79.01 Long term (current) use of anticoagulants (principal) ==

== ENCOUNTER → 2019-05-09 | Outpatient (CLI) | payer OTHER ==
[2019-05-09 10:16] LABS: INTERNATIONAL NORM RATIO 1.2 (2.0-3.5)
== END | disposition home or self-care (01) ==
LOC: LAB 05-08 14:09
PROVIDERS: Internal Medicine Nephrology
DX: Z79.01 Long term (current) use of anticoagulants (principal)

== ENCOUNTER → 2019-06-06 | Outpatient (CLI) | payer OTHER | END | disposition home or self-care (01) | LOC: RESCLI 00:43 | DX: I25.10 Atherosclerotic heart disease of native coronary artery without angina pectoris (principal); I12.9 Hypertensive chronic kidney disease with stage 1 through stage 4 chronic kidney disease, or unspecified chronic kidney disease; E11.42 Type 2 diabetes mellitus with diabetic polyneuropathy; N18.3 Chronic kidney disease, stage 3 (moderate); E11.22 Type 2 diabetes mellitus with diabetic chronic kidney disease; F32.9 Major depressive disorder, single episode, unspecified; I48.0 Paroxysmal atrial fibrillation; E78.5 Hyperlipidemia, unspecified; E03.9 Hypothyroidism, unspecified; E55.9 Vitamin D deficiency, unspecified; E53.8 Deficiency of other specified B group vitamins; J44.9 Chronic obstructive pulmonary disease, unspecified; K21.9 Gastro-esophageal reflux disease without esophagitis; R35.0 Frequency of micturition; Z79.01 Long term (current) use of anticoagulants; Z79.899 Other long term (current) drug therapy; Z88.0 Allergy status to penicillin; Z91.048 Other nonmedicinal substance allergy status ==

== ENCOUNTER → 2019-07-12 | Outpatient (CLI) | payer OTHER ==
[2019-07-12 17:36] LABS: CLARITY CLOUDY (CLEAR); COLOR YELLOW (YELLOW)
[2019-07-12 17:37] LABS: BILIRUBIN NEGATIVE (NEGATIVE); BLOOD 3+ (NEGATIVE); GLUCOSE TRACE (NEGATIVE); KETONE NEGATIVE (NEGATIVE); LEUKO ESTERASE TRACE (NEGATIVE); NITRITE NEGATIVE (NEGATIVE); SPECIFIC GRAVITY 1.015 (1.005-1.030); UROBILINOGEN 0.2 E.U./dl (0.2-1.0)
[2019-07-12 17:38] LABS: BACTERIA 4+; RBC 51-100 rbc/hpf (0-2); WBC 51-100 wbc/hpf (0-5)
== END | disposition home or self-care (01) ==
LOC: LAB 15:41
PROVIDERS: Student in an Organized Health Care Education/Training Program
DX: R39.9 Unspecified symptoms and signs involving the genitourinary system (principal)

== ENCOUNTER → 2019-07-15 | Outpatient (CLI) | payer OTHER ==
[2019-07-15 13:56] LABS: INTERNATIONAL NORM RATIO 1.1 (2.0-3.5)
== END | disposition home or self-care (01) ==
LOC: LAB 07-13 01:21
PROVIDERS: Student in an Organized Health Care Education/Training Program
DX: N39.0 Urinary tract infection, site not specified (principal); N28.9 Disorder of kidney and ureter, unspecified; Z79.01 Long term (current) use of anticoagulants

== ENCOUNTER → 2019-07-17 | Outpatient (CLI) | payer OTHER | END | disposition home or self-care (01) | LOC: LAB 01:03 | PROVIDERS: Student in an Organized Health Care Education/Training Program | DX: I48.0 Paroxysmal atrial fibrillation (principal) ==

== ENCOUNTER → 2019-07-19 | Outpatient (CLI) | payer OTHER | END | disposition home or self-care (01) | LOC: ORTHO 00:18 → LAB 00:18 → ORTHO 20:36 | PROVIDERS: Student in an Organized Health Care Education/Training Program | DX: I48.0 Paroxysmal atrial fibrillation (principal) ==

== ENCOUNTER → 2019-07-21 | Outpatient (CLI) | payer OTHER | END | disposition home or self-care (01) | LOC: LAB 13:02 | PROVIDERS: Student in an Organized Health Care Education/Training Program | DX: I48.0 Paroxysmal atrial fibrillation (principal) ==

== ENCOUNTER → 2019-07-23 | Outpatient (CLI) | payer OTHER | END | disposition home or self-care (01) | LOC: LAB 00:46 | PROVIDERS: Student in an Organized Health Care Education/Training Program | DX: I48.0 Paroxysmal atrial fibrillation (principal) ==

== ENCOUNTER → 2019-07-26 | Outpatient (CLI) | payer OTHER ==
[2019-07-26 13:25] LABS: INTERNATIONAL NORM RATIO 1.1 (2.0-3.5)
== END | disposition home or self-care (01) ==
LOC: LAB 00:18
PROVIDERS: Student in an Organized Health Care Education/Training Program
DX: I48.0 Paroxysmal atrial fibrillation (principal)

== ENCOUNTER → 2019-08-02 | Outpatient (CLI) | payer OTHER | END | disposition home or self-care (01) | LOC: LAB 11:04 | DX: I25.9 Chronic ischemic heart disease, unspecified (principal); I48.91 Unspecified atrial fibrillation ==

== ENCOUNTER → 2019-08-14 | Outpatient (CLI) | payer OTHER | END | disposition home or self-care (01) | LOC: RESCLI 01:07 | DX: Z23 Encounter for immunization (principal); I25.10 Atherosclerotic heart disease of native coronary artery without angina pectoris; R35.0 Frequency of micturition; E11.42 Type 2 diabetes mellitus with diabetic polyneuropathy; F32.9 Major depressive disorder, single episode, unspecified; I48.0 Paroxysmal atrial fibrillation; E78.5 Hyperlipidemia, unspecified; E03.9 Hypothyroidism, unspecified; E55.9 Vitamin D deficiency, unspecified; E53.8 Deficiency of other specified B group vitamins; I10 Essential (primary) hypertension; K21.9 Gastro-esophageal reflux disease without esophagitis; Z79.01 Long term (current) use of anticoagulants; Z79.82 Long term (current) use of aspirin; Z79.899 Other long term (current) drug therapy; Z87.891 Personal history of nicotine dependence ==

== ENCOUNTER → 2020-01-02 | Outpatient (CLI) | payer OTHER ==
[2020-01-02 12:57] LABS: INTERNATIONAL NORM RATIO 1.2 (2.0-3.5)
== END | disposition home or self-care (01) ==
LOC: LAB 10:59
PROVIDERS: Student in an Organized Health Care Education/Training Program
DX: Z79.01 Long term (current) use of anticoagulants (principal)

== ENCOUNTER 2020-01-09 15:02 | Emergency (ER) | payer OTHER ==
[~2020-01-09] VITALS: Ht 175.2 cm; Wt 79.4 kg
[2020-01-09 15:16] VITALS: BP 134/75
[2020-01-09 15:51] LABS: CREATININE 1.46 mg/dL (0.70-1.30); POTASSIUM 4.1 mmol/L (3.5-5.1)
== END 2020-01-09 16:14 | disposition home or self-care (01) ==
LOC: ED 15:02
PROVIDERS: Emergency Medicine
DX: R79.1 Abnormal coagulation profile (principal); E11.65 Type 2 diabetes mellitus with hyperglycemia; I13.0 Hypertensive heart and chronic kidney disease with heart failure and stage 1 through stage 4 chronic kidney disease, or unspecified chronic kidney disease; E11.22 Type 2 diabetes mellitus with diabetic chronic kidney disease; N18.3 Chronic kidney disease, stage 3 (moderate); I48.91 Unspecified atrial fibrillation; I25.10 Atherosclerotic heart disease of native coronary artery without angina pectoris; J44.9 Chronic obstructive pulmonary disease, unspecified; K21.9 Gastro-esophageal reflux disease without esophagitis; Z88.0 Allergy status to penicillin; Z79.899 Other long term (current) drug therapy; Z79.82 Long term (current) use of aspirin; Z87.891 Personal history of nicotine dependence

== ENCOUNTER → 2020-01-09 | Outpatient (CLI) | payer OTHER | END | disposition home or self-care (01) | LOC: LAB 00:33 | PROVIDERS: Student in an Organized Health Care Education/Training Program | DX: I48.0 Paroxysmal atrial fibrillation (principal) ==

== ENCOUNTER → 2020-01-13 | Outpatient (CLI) | payer OTHER ==
[2020-01-13 12:07] LABS: INTERNATIONAL NORM RATIO 2.6 (2.0-3.5)
== END | disposition home or self-care (01) ==
LOC: LAB 11:23
PROVIDERS: Student in an Organized Health Care Education/Training Program
DX: I48.0 Paroxysmal atrial fibrillation (principal)

== ENCOUNTER → 2020-01-15 | Outpatient (CLI) | payer OTHER ==
[2020-01-15 11:40] LABS: INTERNATIONAL NORM RATIO 2.3 (2.0-3.5)
== END | disposition home or self-care (01) ==
LOC: LAB 00:27
PROVIDERS: Internal Medicine
DX: I48.0 Paroxysmal atrial fibrillation (principal)

== ENCOUNTER → 2020-01-17 | Outpatient (CLI) | payer OTHER ==
[2020-01-17 10:11] LABS: INTERNATIONAL NORM RATIO 2.4 (2.0-3.5)
== END | disposition home or self-care (01) ==
LOC: LAB 09:17
PROVIDERS: Student in an Organized Health Care Education/Training Program
DX: I48.0 Paroxysmal atrial fibrillation (principal)

== ENCOUNTER → 2020-01-20 | Outpatient (CLI) | payer OTHER ==
[2020-01-20 12:14] LABS: INTERNATIONAL NORM RATIO 3.1 (2.0-3.5)
== END | disposition home or self-care (01) ==
LOC: LAB 11:12
PROVIDERS: Student in an Organized Health Care Education/Training Program
DX: I48.0 Paroxysmal atrial fibrillation (principal)

== ENCOUNTER → 2020-01-22 | Outpatient (CLI) | payer OTHER ==
[2020-01-22 11:59] LABS: INTERNATIONAL NORM RATIO 2.6 (2.0-3.5)
== END | disposition home or self-care (01) ==
LOC: LAB 00:50
PROVIDERS: Student in an Organized Health Care Education/Training Program
DX: I48.0 Paroxysmal atrial fibrillation (principal)

== ENCOUNTER → 2020-01-24 | Outpatient (CLI) | payer OTHER ==
[2020-01-24 14:17] LABS: INTERNATIONAL NORM RATIO 2.4 (2.0-3.5)
== END | disposition home or self-care (01) ==
LOC: LAB 00:57
PROVIDERS: Student in an Organized Health Care Education/Training Program
DX: I48.0 Paroxysmal atrial fibrillation (principal)

== ENCOUNTER → 2020-01-27 | Outpatient (CLI) | payer OTHER ==
[2020-01-27 12:01] LABS: INTERNATIONAL NORM RATIO 2.5 (2.0-3.5)
== END | disposition home or self-care (01) ==
LOC: LAB 01:10
PROVIDERS: Internal Medicine Nephrology
DX: I48.0 Paroxysmal atrial fibrillation (principal)

== ENCOUNTER → 2020-01-29 | Outpatient (CLI) | payer OTHER ==
[2020-01-29 12:12] LABS: INTERNATIONAL NORM RATIO 2.9 (2.0-3.5)
== END | disposition home or self-care (01) ==
LOC: LAB 00:43
PROVIDERS: Student in an Organized Health Care Education/Training Program
DX: I48.0 Paroxysmal atrial fibrillation (principal)

== ENCOUNTER → 2020-01-31 | Outpatient (CLI) | payer OTHER ==
[2020-01-31 11:39] LABS: INTERNATIONAL NORM RATIO 2.8 (2.0-3.5)
== END | disposition home or self-care (01) ==
LOC: LAB 01:37
PROVIDERS: Student in an Organized Health Care Education/Training Program
DX: I48.0 Paroxysmal atrial fibrillation (principal)

== ENCOUNTER → 2020-02-03 | Outpatient (CLI) | payer OTHER ==
[2020-02-03 11:55] LABS: INTERNATIONAL NORM RATIO 2.8 (2.0-3.5)
== END | disposition home or self-care (01) ==
LOC: LAB 05:03
PROVIDERS: Internal Medicine Nephrology
DX: I48.0 Paroxysmal atrial fibrillation (principal)

== ENCOUNTER → 2020-02-04 | Outpatient (CLI) | payer OTHER | END | disposition home or self-care (01) | LOC: RESCLI 01:37 | PROVIDERS: ATTEND Internal Medicine | DX: N39.0 Urinary tract infection, site not specified (principal); E55.9 Vitamin D deficiency, unspecified; I48.0 Paroxysmal atrial fibrillation; M75.02 Adhesive capsulitis of left shoulder; I25.10 Atherosclerotic heart disease of native coronary artery without angina pectoris; E78.5 Hyperlipidemia, unspecified; E03.9 Hypothyroidism, unspecified; F32.9 Major depressive disorder, single episode, unspecified; I50.22 Chronic systolic (congestive) heart failure; E11.42 Type 2 diabetes mellitus with diabetic polyneuropathy; I12.9 Hypertensive chronic kidney disease with stage 1 through stage 4 chronic kidney disease, or unspecified chronic kidney disease; N18.3 Chronic kidney disease, stage 3 (moderate); E11.22 Type 2 diabetes mellitus with diabetic chronic kidney disease; K21.9 Gastro-esophageal reflux disease without esophagitis; G62.9 Polyneuropathy, unspecified; M75.122 Complete rotator cuff tear or rupture of left shoulder, not specified as traumatic; Z91.19 Patient's noncompliance with other medical treatment and regimen; Z88.0 Allergy status to penicillin; Z79.82 Long term (current) use of aspirin; Z79.899 Other long term (current) drug therapy; Z87.891 Personal history of nicotine dependence ==

== ENCOUNTER → 2020-02-05 | Outpatient (CLI) | payer OTHER ==
[2020-02-05 12:14] LABS: INTERNATIONAL NORM RATIO 2.9 (2.0-3.5)
== END | disposition home or self-care (01) ==
LOC: LAB 05:45
PROVIDERS: Student in an Organized Health Care Education/Training Program
DX: I48.0 Paroxysmal atrial fibrillation (principal)

== ENCOUNTER → 2020-02-07 | Outpatient (CLI) | payer OTHER ==
[2020-02-07 11:58] LABS: BASO % 0.2 % (0.0-1.0); EOS % 0.4 % (1.0-4.0); HEMATOCRIT 41.9 % (42.0-52.0); LYMPH % 23.4 % (27.0-41.0); MEAN CELL VOLUME 89.5 fl (80.0-94.0); MEAN CORPUSCULAR HGB 27.4 pg (27.0-31.0); MEAN CORPUSCULAR HGB CONC 30.5 g/dl (33.0-37.0); MONO # 0.8 10*3/uL (0.1-1.0); MONO % 9.6 % (3.0-9.0); NEUT # 5.6 10*3/uL (2.3-7.9); NEUT % 65.9 % (47.0-73.0); PLATELET COUNT AUTOMATED 103 10*3/uL (130-400); RED BLOOD COUNT 4.68 10*6/uL (4.50-5.90); RED CELL DISTRI WIDTH 15.8 % (0-14.5); WHITE BLOOD COUNT 8.5 10*3/uL (4.8-10.8)
[2020-02-07 13:43] LABS: ALBUMIN 3.7 gm/dl (3.1-4.5); CREATININE 1.42 mg/dL (0.70-1.30); POTASSIUM 4.5 mmol/L (3.5-5.1); TOTAL PROTEIN 8.4 gm/dL (6.4-8.2)
[2020-02-07 13:49] LABS: INTERNATIONAL NORM RATIO 2.1 (2.0-3.5)
== END | disposition home or self-care (01) ==
LOC: LAB 01:22
PROVIDERS: Student in an Organized Health Care Education/Training Program
DX: I48.0 Paroxysmal atrial fibrillation (principal); N39.0 Urinary tract infection, site not specified; I50.22 Chronic systolic (congestive) heart failure

== ENCOUNTER → 2020-02-10 | Outpatient (CLI) | payer OTHER ==
[2020-02-10 16:01] LABS: INTERNATIONAL NORM RATIO 2.5 (2.0-3.5)
== END | disposition home or self-care (01) ==
LOC: US 02-07 11:00 → LAB 00:10 → US 15:00
PROVIDERS: Internal Medicine Cardiovascular Disease
DX: N28.1 Cyst of kidney, acquired (principal); N28.89 Other specified disorders of kidney and ureter; N39.0 Urinary tract infection, site not specified; I48.0 Paroxysmal atrial fibrillation; I50.22 Chronic systolic (congestive) heart failure; R73.03 Prediabetes; Z79.01 Long term (current) use of anticoagulants

== ENCOUNTER → 2020-02-27 | Outpatient (CLI) | payer OTHER ==
[2020-02-27 13:29] LABS: INTERNATIONAL NORM RATIO 2.4 (2.0-3.5)
== END | disposition home or self-care (01) ==
LOC: LAB 12:14
PROVIDERS: ATTEND Internal Medicine
DX: I48.0 Paroxysmal atrial fibrillation (principal)

== ENCOUNTER → 2020-03-12 | Outpatient (CLI) | payer OTHER ==
[2020-03-12 12:49] LABS: INTERNATIONAL NORM RATIO 2.6 (2.0-3.5)
== END | disposition home or self-care (01) ==
LOC: LAB 11:15
PROVIDERS: Student in an Organized Health Care Education/Training Program; ATTEND Internal Medicine Nephrology
DX: I48.91 Unspecified atrial fibrillation (principal)

== ENCOUNTER → 2020-03-24 | Outpatient (CLI) | payer OTHER ==
[~2020-03-24] MED LIST changes: -ASPIRIN81 MG PO; +ATENOLOL50 M1 PO; +COUMADIN PO; +LEVOXYL125 MCG PO
--- NOTE | 2020-03-24 07:00 | NUR ---
INFORMED CONSENT OBTAINED FOR LEXISCAN NUCLEAR STRESS TESTING WITH DR. LOPEZ. RESTING EKG ATRIAL FIB WITH INTERMITTENT PACED RHYTHM. HAD A RESTING HR OF 85 WITH BP OF 110/70. LUNGS CLEAR WITH SPO2 OF 98% ON ROOM AIR. PT COMPLETED A 1:00 LEXISCAN PROTOCOL RECEIVING LEXISCAN 0.4 MG IV OVER 10 SECONDS. HAD NO CHEST PAIN OR ANY EKG CHANGES. HAD A PEAK HR OF 82 WITH BP OF 88/60. LAST RECOVERY HR OF 77 WITH BP OF 100/68. AWAITING SCANNING IN STABLE CONDITION.
== END | disposition home or self-care (01) ==
LOC: CARD 00:09
PROVIDERS: ATTEND Internal Medicine Cardiovascular Disease
DX: I20.8 Other forms of angina pectoris (principal); R53.81 Other malaise; R73.03 Prediabetes

== ENCOUNTER → 2020-05-19 | Outpatient (CLI) | payer OTHER | LOC: RESCLI 00:25 | PROVIDERS: ATTEND Internal Medicine | DX: I13.0 Hypertensive heart and chronic kidney disease with heart failure and stage 1 through stage 4 chronic kidney disease, or unspecified chronic kidney disease (principal); N18.30 Chronic kidney disease, stage 3 unspecified; I50.22 Chronic systolic (congestive) heart failure; K21.9 Gastro-esophageal reflux disease without esophagitis; I10 Essential (primary) hypertension; G62.9 Polyneuropathy, unspecified; E55.9 Vitamin D deficiency, unspecified; I48.0 Paroxysmal atrial fibrillation; M75.02 Adhesive capsulitis of left shoulder; I25.10 Atherosclerotic heart disease of native coronary artery without angina pectoris; E78.5 Hyperlipidemia, unspecified; E03.9 Hypothyroidism, unspecified; E11.42 Type 2 diabetes mellitus with diabetic polyneuropathy; M75.122 Complete rotator cuff tear or rupture of left shoulder, not specified as traumatic; Z91.19 Patient's noncompliance with other medical treatment and regimen; Z79.899 Other long term (current) drug therapy; Z90.49 Acquired absence of other specified parts of digestive tract; Z98.890 Other specified postprocedural states; Z95.1 Presence of aortocoronary bypass graft; Z95.828 Presence of other vascular implants and grafts; Z87.891 Personal history of nicotine dependence; Z88.8 Allergy status to other drugs, medicaments and biological substances; Z23 Encounter for immunization ==

== ENCOUNTER → 2020-05-26 | Outpatient (CLI) | payer OTHER ==
[2020-05-26 11:34] LABS: INTERNATIONAL NORM RATIO 2.2 (2.0-3.5)
== END | disposition home or self-care (01) ==
LOC: LAB 00:55
PROVIDERS: ATTEND Student in an Organized Health Care Education/Training Program
DX: I48.0 Paroxysmal atrial fibrillation (principal)

== ENCOUNTER → 2020-06-18 | Outpatient (CLI) | payer OTHER ==
[2020-06-18 11:43] LABS: INTERNATIONAL NORM RATIO 2.1 (2.0-3.5)
== END | disposition home or self-care (01) ==
LOC: LAB 00:15
PROVIDERS: Student in an Organized Health Care Education/Training Program; ATTEND Internal Medicine Nephrology
DX: I48.0 Paroxysmal atrial fibrillation (principal); R73.03 Prediabetes

== ENCOUNTER → 2020-07-03 | Outpatient (CLI) | payer OTHER ==
[2020-07-03 11:50] LABS: INTERNATIONAL NORM RATIO 1.1 (2.0-3.5)
== END | disposition home or self-care (01) ==
LOC: LAB 00:16
PROVIDERS: Student in an Organized Health Care Education/Training Program; ATTEND Internal Medicine
DX: I48.0 Paroxysmal atrial fibrillation (principal)

== ENCOUNTER → 2020-07-16 | Outpatient (CLI) | payer OTHER | END | disposition home or self-care (01) | LOC: LAB 01:28 | PROVIDERS: Student in an Organized Health Care Education/Training Program; ATTEND Internal Medicine | DX: I48.0 Paroxysmal atrial fibrillation (principal) ==

== ENCOUNTER → 2020-07-23 | Outpatient (CLI) | payer OTHER | END | disposition home or self-care (01) | LOC: LAB 01:15 | PROVIDERS: Student in an Organized Health Care Education/Training Program; ATTEND Internal Medicine Nephrology | DX: Z79.01 Long term (current) use of anticoagulants (principal) ==

== ENCOUNTER → 2020-07-29 | Outpatient (CLI) | payer OTHER ==
[2020-07-29 12:05] LABS: INTERNATIONAL NORM RATIO 2.7 (2.0-3.5)
== END | disposition home or self-care (01) ==
LOC: LAB 02:52
PROVIDERS: Student in an Organized Health Care Education/Training Program; ATTEND Internal Medicine
DX: Z79.01 Long term (current) use of anticoagulants (principal)

== ENCOUNTER → 2020-08-13 | Outpatient (CLI) | payer OTHER ==
[2020-08-13 11:44] LABS: INTERNATIONAL NORM RATIO 3.1 (2.0-3.5)
== END | disposition home or self-care (01) ==
LOC: LAB 00:12
PROVIDERS: Student in an Organized Health Care Education/Training Program; ATTEND Internal Medicine Nephrology
DX: Z79.01 Long term (current) use of anticoagulants (principal)

== ENCOUNTER → 2020-09-03 | Outpatient (CLI) | payer OTHER ==
[2020-09-03 11:52] LABS: INTERNATIONAL NORM RATIO 3.3 (2.0-3.5)
== END | disposition home or self-care (01) ==
LOC: LAB 01:55
PROVIDERS: Student in an Organized Health Care Education/Training Program; ATTEND Internal Medicine Nephrology
DX: Z79.01 Long term (current) use of anticoagulants (principal)

== ENCOUNTER → 2020-10-02 | Outpatient (CLI) | payer OTHER ==
[2020-10-02 11:50] LABS: INTERNATIONAL NORM RATIO 2.9 (2.0-3.5)
== END | disposition home or self-care (01) ==
LOC: LAB 02:29
PROVIDERS: ATTEND Student in an Organized Health Care Education/Training Program
DX: Z79.01 Long term (current) use of anticoagulants (principal)

== ENCOUNTER → 2020-10-06 | Outpatient (CLI) | payer OTHER | END | disposition home or self-care (01) | LOC: RESCLI 00:33 | PROVIDERS: ATTEND Student in an Organized Health Care Education/Training Program | DX: I13.0 Hypertensive heart and chronic kidney disease with heart failure and stage 1 through stage 4 chronic kidney disease, or unspecified chronic kidney disease (principal); I50.22 Chronic systolic (congestive) heart failure; E11.22 Type 2 diabetes mellitus with diabetic chronic kidney disease; N18.30 Chronic kidney disease, stage 3 unspecified; I25.10 Atherosclerotic heart disease of native coronary artery without angina pectoris; E11.42 Type 2 diabetes mellitus with diabetic polyneuropathy; F32.9 Major depressive disorder, single episode, unspecified; I48.0 Paroxysmal atrial fibrillation; E78.5 Hyperlipidemia, unspecified; E03.9 Hypothyroidism, unspecified; E55.9 Vitamin D deficiency, unspecified; G62.9 Polyneuropathy, unspecified; K21.9 Gastro-esophageal reflux disease without esophagitis; M75.122 Complete rotator cuff tear or rupture of left shoulder, not specified as traumatic; M75.02 Adhesive capsulitis of left shoulder; Z79.01 Long term (current) use of anticoagulants; Z79.82 Long term (current) use of aspirin; Z79.899 Other long term (current) drug therapy ==

== ENCOUNTER 2020-10-25 02:35 | Inpatient (IN) | payer OTHER ==
[~2020-10-25] VITALS: Ht 175.2 cm; Wt 86.7 kg
[2020-10-25] VITALS (7 sets, daily range): BP systolic 109–135; BP diastolic 63–96
[2020-10-25 03:11] LABS: HEMATOCRIT 35.8 % (42.0-52.0); MEAN CELL VOLUME 89.1 fl (80.0-94.0); MEAN CORPUSCULAR HGB 26.9 pg (27.0-31.0); MEAN CORPUSCULAR HGB CONC 30.2 g/dl (33.0-37.0); PLATELET COUNT AUTOMATED 127 10*3/uL (130-400); RED BLOOD COUNT 4.02 10*6/uL (4.50-5.90); RED CELL DISTRI WIDTH 16.2 % (0-14.5); WHITE BLOOD COUNT 9.1 10*3/uL (4.8-10.8)
[2020-10-25 03:30] LABS: ALBUMIN 3.1 gm/dl (3.1-4.5); ALKALINE PHOSPHATASE 78 U/L (45-117); BUN 27 mg/dl (7-24); CHLORIDE 105 mmol/L (98-107); CREATININE 1.38 mg/dL (0.70-1.30); POTASSIUM 3.8 mmol/L (3.5-5.1); SGOT/AST 11 IU/L (3-35); SGPT/ALT 11 U/L (12-78); SODIUM 138 mmol/L (136-145); TOTAL PROTEIN 7.1 gm/dL (6.4-8.2)
[2020-10-25 03:35] LABS: BASOPHILS 1 % (0-1); TOTAL CELLS COUNTED 100 #CELLS
[2020-10-25 03:36] LABS: INTERNATIONAL NORM RATIO 5.6 (2.0-3.5); MICROCYTOSIS SLIGHT; PLATELET SUFFICIENCY LOW (NORMAL)
[2020-10-25 03:37] LABS: TROPONIN I < 0.015 ng/ml (<0.045)
[2020-10-25 05:50] LABS: ABG BASE EXCESS -0.1 mmol/L (-2.0-2.0); ARTERIAL BLOOD GAS PH 7.402 (7.35-7.45); ARTERIAL BLOOD GAS PO2 72.2 (80-90)
[2020-10-25] MEDS ORDERED: OXYCODONE HCL5 MG PO (10:33)
[2020-10-25] MEDS ORDERED: ATORVASTATIN CA40 M1 PO (11:07)
[2020-10-25] MEDS ORDERED: FUROSEMIDE20 M1 PO (11:22)
[2020-10-25] MEDS ORDERED: JANUVIA50 MG PO (11:23)
[2020-10-25] MEDS ORDERED: OMEPRAZOLE40 MG PO (11:25)
[2020-10-25] MEDS ORDERED: LYRICA25 M1 PO (11:26)
[2020-10-26 07:35] LABS: BASO % 0.1 % (0.0-1.0); HEMATOCRIT 35.5 % (42.0-52.0); LYMPH # 1.4 10*3/uL (1.3-4.4); LYMPH % 14.6 % (27.0-41.0); MEAN CELL VOLUME 90.3 fl (80.0-94.0); MEAN CORPUSCULAR HGB CONC 29.9 g/dl (33.0-37.0); MEAN PLATELET VOLUME 12.7 fl (9.6-12.3); MONO # 1.4 10*3/uL (0.1-1.0); MONO % 14.7 % (3.0-9.0); NEUT # 6.8 10*3/uL (2.3-7.9); NEUT % 70.1 % (47.0-73.0); PLATELET COUNT AUTOMATED 116 10*3/uL (130-400); RED BLOOD COUNT 3.93 10*6/uL (4.50-5.90); WHITE BLOOD COUNT 9.7 10*3/uL (4.8-10.8)
[2020-10-26 07:43] LABS: INTERNATIONAL NORM RATIO 2.9 (2.0-3.5)
[2020-10-26 07:48] LABS: CREATININE 1.48 mg/dL (0.70-1.30); POTASSIUM 3.8 mmol/L (3.5-5.1)
[2020-10-26 08:00] VITALS: BP 112/62
[2020-10-26 12:00] VITALS: BP 107/70
[2020-10-26 16:00] VITALS: BP 132/71
[2020-10-26 20:00] VITALS: BP 99/60
[2020-10-27] VITALS: BP 102/58
[2020-10-27 06:59] LABS: BASO % 0.1 % (0.0-1.0); EOS % 0.1 % (1.0-4.0); HEMATOCRIT 33.1 % (42.0-52.0); LYMPH # 1.2 10*3/uL (1.3-4.4); LYMPH % 14.5 % (27.0-41.0); MEAN CELL VOLUME 89.5 fl (80.0-94.0); MEAN CORPUSCULAR HGB CONC 30.2 g/dl (33.0-37.0); MONO % 12.8 % (3.0-9.0); NEUT # 5.7 10*3/uL (2.3-7.9); RED CELL DISTRI WIDTH 16.2 % (0-14.5)
[2020-10-27 07:09] LABS: INTERNATIONAL NORM RATIO 2.6 (2.0-3.5)
[2020-10-27 07:12] LABS: BUN 41 mg/dl (7-24); CHLORIDE 103 mmol/L (98-107); CREATININE 1.31 mg/dL (0.70-1.30); POTASSIUM 3.6 mmol/L (3.5-5.1); SODIUM 137 mmol/L (136-145)
[2020-10-27 07:17] LABS: PLATELET COUNT AUTOMATED 116 10*3/uL (130-400)
[2020-10-27 08:00] VITALS: BP 118/62
[2020-10-27 12:00] VITALS: BP 110/61
[2020-10-27 16:00] VITALS: BP 98/62
[2020-10-27 20:00] VITALS: BP 109/63
[2020-10-28] VITALS: BP 95/66
[2020-10-28 06:43] LABS: INTERNATIONAL NORM RATIO 2.5 (2.0-3.5)
[2020-10-28 08:00] VITALS: BP 103/70
[2020-10-28 12:00] VITALS: BP 99/55
[2020-10-28 16:00] VITALS: BP 95/60
[2020-10-28] MEDS ORDERED: ZITHROMAX250 MG PO (16:08)
[2020-10-28] MEDS ORDERED: Coumadin3 MG PO (16:08)
[2020-10-28] MEDS ORDERED: LASIX20 MG PO (16:08)
== END 2020-10-28 17:12 | disposition home health service (06) | DRG 177 ==
LOC: ED 02:35 → 4E 04:51 → EDHOLD 04:51 → 4E 08:53
PROVIDERS: Emergency Medicine; Hospitalist; Internal Medicine; ADMIT Internal Medicine; ATTEND Internal Medicine
PROC: 5A0935A Assistance with Respiratory Ventilation, Less than 24 Consecutive Hours, High Flow/Velocity Cannula (ICD-10-PCS; 2020-10-25)
PROC: XW033E5 Introduction of Remdesivir Anti-infective into Peripheral Vein, Percutaneous Approach, New Technology Group 5 (ICD-10-PCS; 2020-10-26)
PROC: BD1BYZZ Fluoroscopy of Mouth/Oropharynx using Other Contrast (ICD-10-PCS; principal; 2020-10-27)
DX: J15.6 Pneumonia due to other Gram-negative bacteria (principal); I50.23 Acute on chronic systolic (congestive) heart failure; I13.0 Hypertensive heart and chronic kidney disease with heart failure and stage 1 through stage 4 chronic kidney disease, or unspecified chronic kidney disease; F33.9 Major depressive disorder, recurrent, unspecified; I48.21 Permanent atrial fibrillation; I48.92 Unspecified atrial flutter; J44.0 Chronic obstructive pulmonary disease with (acute) lower respiratory infection; D64.9 Anemia, unspecified; E11.65 Type 2 diabetes mellitus with hyperglycemia; E83.42 Hypomagnesemia; K21.9 Gastro-esophageal reflux disease without esophagitis; I25.119 Atherosclerotic heart disease of native coronary artery with unspecified angina pectoris; N18.31 Chronic kidney disease, stage 3a; E11.22 Type 2 diabetes mellitus with diabetic chronic kidney disease; R07.89 Other chest pain; D69.6 Thrombocytopenia, unspecified; R79.1 Abnormal coagulation profile; E78.2 Mixed hyperlipidemia; N40.0 Benign prostatic hyperplasia without lower urinary tract symptoms; E03.9 Hypothyroidism, unspecified; E53.8 Deficiency of other specified B group vitamins; Z96.652 Presence of left artificial knee joint; E11.40 Type 2 diabetes mellitus with diabetic neuropathy, unspecified; Z20.822 Contact with and (suspected) exposure to COVID-19; Z95.0 Presence of cardiac pacemaker; Z88.0 Allergy status to penicillin; Z91.048 Other nonmedicinal substance allergy status; Z87.440 Personal history of urinary (tract) infections; Z86.010 Personal history of colon polyps; Z95.5 Presence of coronary angioplasty implant and graft; Z95.1 Presence of aortocoronary bypass graft; Z90.49 Acquired absence of other specified parts of digestive tract; Z87.891 Personal history of nicotine dependence; Z83.3 Family history of diabetes mellitus; Z82.49 Family history of ischemic heart disease and other diseases of the circulatory system; Z79.899 Other long term (current) drug therapy; Z79.82 Long term (current) use of aspirin; Z79.01 Long term (current) use of anticoagulants

== ENCOUNTER → 2020-11-02 | Outpatient (CLI) | payer OTHER ==
[~2020-11-02] MED LIST changes: +ATORVASTATIN CA40 M1 PO; +Coumadin3 MG PO; +FUROSEMIDE20 M1 PO; +LYRICA25 M1 PO; +OMEPRAZOLE40 MG PO; +OXYCODONE HCL5 MG PO; +ZITHROMAX250 MG PO
[2020-11-02 11:56] LABS: INTERNATIONAL NORM RATIO 2.3 (2.0-3.5)
== END | disposition home or self-care (01) ==
LOC: LAB 00:42
PROVIDERS: Student in an Organized Health Care Education/Training Program; ATTEND Internal Medicine
DX: Z79.01 Long term (current) use of anticoagulants (principal)

== ENCOUNTER → 2020-11-10 | Outpatient (CLI) | payer OTHER ==
[2020-11-10 11:54] LABS: INTERNATIONAL NORM RATIO 1.7 (2.0-3.5)
== END | disposition home or self-care (01) ==
LOC: LAB 00:07
PROVIDERS: Student in an Organized Health Care Education/Training Program; ATTEND Internal Medicine
DX: Z79.01 Long term (current) use of anticoagulants (principal)

== ENCOUNTER → 2020-11-13 | Outpatient (CLI) | payer OTHER | END | disposition home or self-care (01) | LOC: RESCLI 03:28 | PROVIDERS: ATTEND Internal Medicine | DX: I48.0 Paroxysmal atrial fibrillation (principal); E78.5 Hyperlipidemia, unspecified; E03.9 Hypothyroidism, unspecified; E55.9 Vitamin D deficiency, unspecified; I13.0 Hypertensive heart and chronic kidney disease with heart failure and stage 1 through stage 4 chronic kidney disease, or unspecified chronic kidney disease; N18.30 Chronic kidney disease, stage 3 unspecified; I50.22 Chronic systolic (congestive) heart failure; G62.9 Polyneuropathy, unspecified; K21.9 Gastro-esophageal reflux disease without esophagitis; M75.122 Complete rotator cuff tear or rupture of left shoulder, not specified as traumatic; M75.02 Adhesive capsulitis of left shoulder; Z91.19 Patient's noncompliance with other medical treatment and regimen; Z79.01 Long term (current) use of anticoagulants; Z79.899 Other long term (current) drug therapy; Z95.828 Presence of other vascular implants and grafts; Z90.49 Acquired absence of other specified parts of digestive tract; Z95.1 Presence of aortocoronary bypass graft; Z98.890 Other specified postprocedural states; Z88.0 Allergy status to penicillin ==

== ENCOUNTER → 2020-12-25 | Outpatient (CLI) | payer OTHER | END | disposition home or self-care (01) | LOC: RAD/SH 09:53 | PROVIDERS: ATTEND Internal Medicine | DX: R13.12 Dysphagia, oropharyngeal phase (principal) ==

== ENCOUNTER → 2021-01-01 | Outpatient (CLI) | payer OTHER ==
[2021-01-01 15:01] LABS: INTERNATIONAL NORM RATIO 1.4 (2.0-3.5)
== END | disposition home or self-care (01) ==
LOC: LAB 01:36
PROVIDERS: Student in an Organized Health Care Education/Training Program; ATTEND Student in an Organized Health Care Education/Training Program
DX: Z79.01 Long term (current) use of anticoagulants (principal)

== ENCOUNTER → 2021-01-11 | Outpatient (CLI) | payer OTHER ==
[2021-01-11 16:17] LABS: INTERNATIONAL NORM RATIO 1.6 (2.0-3.5)
== END | disposition home or self-care (01) ==
LOC: LAB 15:49
PROVIDERS: ATTEND Internal Medicine Cardiovascular Disease
DX: I48.91 Unspecified atrial fibrillation (principal); Z79.01 Long term (current) use of anticoagulants

== ENCOUNTER → 2021-03-04 | Outpatient (CLI) | payer OTHER ==
[2021-03-04 11:34] LABS: INTERNATIONAL NORM RATIO 1.4 (2.0-3.5)
== END | disposition home or self-care (01) ==
LOC: LAB 01:00
PROVIDERS: ATTEND Internal Medicine Cardiovascular Disease
DX: I48.91 Unspecified atrial fibrillation (principal); Z79.01 Long term (current) use of anticoagulants

== ENCOUNTER → 2021-03-12 | Outpatient (CLI) | payer OTHER | END | disposition home or self-care (01) | LOC: RESCLI 00:07 | PROVIDERS: ATTEND Internal Medicine | DX: E11.42 Type 2 diabetes mellitus with diabetic polyneuropathy (principal); F32.9 Major depressive disorder, single episode, unspecified; I25.10 Atherosclerotic heart disease of native coronary artery without angina pectoris; E55.9 Vitamin D deficiency, unspecified; I11.0 Hypertensive heart disease with heart failure; I50.20 Unspecified systolic (congestive) heart failure; E03.9 Hypothyroidism, unspecified; J44.9 Chronic obstructive pulmonary disease, unspecified; R09.89 Other specified symptoms and signs involving the circulatory and respiratory systems; E53.8 Deficiency of other specified B group vitamins; K21.9 Gastro-esophageal reflux disease without esophagitis; E78.5 Hyperlipidemia, unspecified; Z79.01 Long term (current) use of anticoagulants; Z88.0 Allergy status to penicillin; Z88.8 Allergy status to other drugs, medicaments and biological substances; Z79.82 Long term (current) use of aspirin; Z79.899 Other long term (current) drug therapy; Z87.891 Personal history of nicotine dependence ==

== ENCOUNTER → 2021-03-15 | Outpatient (CLI) | payer OTHER ==
[2021-03-15 12:52] LABS: INTERNATIONAL NORM RATIO 1.5 (2.0-3.5)
== END | disposition home or self-care (01) ==
LOC: LAB 11:31
PROVIDERS: ATTEND Internal Medicine Cardiovascular Disease
DX: I48.91 Unspecified atrial fibrillation (principal); Z79.01 Long term (current) use of anticoagulants

== ENCOUNTER 2021-04-04 10:55 | Inpatient (IN) | payer OTHER ==
[~2021-04-04] VITALS: Ht 175.2 cm; Wt 71.7 kg
[2021-04-04 11:05] VITALS: BP 127/70
[2021-04-04] MEDS ORDERED: LASIX40 MG PO (11:06)
[2021-04-04] MEDS ORDERED: TOPROL XL25 MG PO (11:08)
[2021-04-04] MEDS ORDERED: LEVOTHYROXINE112 MCG PO (11:09)
[2021-04-04] MEDS ORDERED: SIMVASTATIN40 MG PO (11:11)
[2021-04-04 11:55] LABS: HEMATOCRIT 36.9 % (42.0-52.0); MEAN CELL VOLUME 88.1 fl (80.0-94.0); MEAN CORPUSCULAR HGB 25.1 pg (27.0-31.0); MEAN CORPUSCULAR HGB CONC 28.5 g/dl (33.0-37.0); MEAN PLATELET VOLUME 11.9 fl (9.6-12.3); PLATELET COUNT AUTOMATED 133 10*3/uL (130-400); RED BLOOD COUNT 4.19 10*6/uL (4.50-5.90); RED CELL DISTRI WIDTH 18.8 % (0-14.5); WHITE BLOOD COUNT 5.8 10*3/uL (4.8-10.8)
[2021-04-04 12:10] LABS: ALBUMIN 3.1 gm/dl (3.1-4.5); ALKALINE PHOSPHATASE 85 U/L (45-117); BUN 23 mg/dl (7-24); CHLORIDE 104 mmol/L (98-107); CPK 49 U/L (39-308); CREATININE 1.24 mg/dL (0.70-1.30); POTASSIUM 3.8 mmol/L (3.5-5.1); SGOT/AST 15 IU/L (3-35); SGPT/ALT 13 U/L (12-78); SODIUM 138 mmol/L (136-145)
[2021-04-04 12:12] LABS: TROPONIN I < 0.015 ng/ml (<0.045)
[2021-04-04 12:16] LABS: BASOPHILS 2 % (0-1); PLATELET SUFFICIENCY NORMAL (NORMAL); TOTAL CELLS COUNTED 100 #CELLS
[2021-04-04 12:17] LABS: POLYCHROMASIA SLIGHT
[2021-04-04 14:01] VITALS: BP 107/48
[2021-04-04 14:36] LABS: BILIRUBIN Negative (Negative); BLOOD Negative (Negative); CLARITY Clear (Clear); COLOR Yellow (Yellow); GLUCOSE 3+ (Negative); KETONE Trace (Negative); LEUKO ESTERASE Negative (Negative); NITRITE Negative (Negative); SPECIFIC GRAVITY >= 1.030 (1.001-1.030)
[2021-04-04 14:44] LABS: RBC 0-2 rbc/hpf (0-2); WBC 0-2 wbc/hpf (0-5); YEAST 1+
[2021-04-05 06:19] VITALS: BP 124/71
[2021-04-05 06:51] LABS: ALBUMIN 3.1 gm/dl (3.1-4.5); ALKALINE PHOSPHATASE 84 U/L (45-117); BUN 20 mg/dl (7-24); CHLORIDE 104 mmol/L (98-107); CHOLESTEROL 101 mg/dL (<200); CREATININE 1.21 mg/dL (0.70-1.30); FREE T4 1.22 ng/dl (0.76-1.46); LDL CHOLESTEROL 46 mg/dL (9-159); POTASSIUM 3.8 mmol/L (3.5-5.1); SGOT/AST 19 IU/L (3-35); SGPT/ALT 12 U/L (12-78); SODIUM 139 mmol/L (136-145); TOTAL PROTEIN 7.8 gm/dL (6.4-8.2); TRIGLYCERIDES 114 mg/dl (<150)
[2021-04-05 06:53] LABS: INTERNATIONAL NORM RATIO 2.1 (2.0-3.5)
[2021-04-05 07:01] LABS: HEMATOCRIT 37.8 % (42.0-52.0); MEAN CELL VOLUME 88.7 fl (80.0-94.0); MEAN CORPUSCULAR HGB 24.9 pg (27.0-31.0); PLATELET COUNT AUTOMATED 116 10*3/uL (130-400); RED BLOOD COUNT 4.26 10*6/uL (4.50-5.90); RED CELL DISTRI WIDTH 19.3 % (0-14.5); WHITE BLOOD COUNT 7.6 10*3/uL (4.8-10.8)
[2021-04-05 07:43] LABS: TOTAL CELLS COUNTED 100 #CELLS
[2021-04-05 07:44] LABS: PLATELET SUFFICIENCY LOW (NORMAL); POLYCHROMASIA SLIGHT; STOMATOCYTE FEW; TARGET CELLS FEW
[2021-04-05 08:00] VITALS: BP 117/63
[2021-04-05 10:00] VITALS: BP 117/63
[2021-04-05 13:45] VITALS: BP 117/66
== END 2021-04-05 16:33 | disposition home or self-care (01) | DRG 291 ==
LOC: ED 10:55 → EDHOLD 13:21
PROVIDERS: Emergency Medicine; Student in an Organized Health Care Education/Training Program; ADMIT Internal Medicine; ATTEND Internal Medicine
DX: I11.0 Hypertensive heart disease with heart failure (principal); I50.23 Acute on chronic systolic (congestive) heart failure; E87.2 Acidosis; I48.21 Permanent atrial fibrillation; R17 Unspecified jaundice; J91.8 Pleural effusion in other conditions classified elsewhere; D64.9 Anemia, unspecified; E55.9 Vitamin D deficiency, unspecified; I25.10 Atherosclerotic heart disease of native coronary artery without angina pectoris; E03.9 Hypothyroidism, unspecified; Z96.652 Presence of left artificial knee joint; R73.9 Hyperglycemia, unspecified; E53.8 Deficiency of other specified B group vitamins; Z95.1 Presence of aortocoronary bypass graft; Z87.891 Personal history of nicotine dependence; Z95.810 Presence of automatic (implantable) cardiac defibrillator; Z83.3 Family history of diabetes mellitus; Z90.49 Acquired absence of other specified parts of digestive tract; Z88.0 Allergy status to penicillin; Z79.82 Long term (current) use of aspirin; Z79.899 Other long term (current) drug therapy; Z79.01 Long term (current) use of anticoagulants

== ENCOUNTER 2021-04-23 14:08 | Emergency (ER) | payer OTHER ==
[2021-04-23 14:33] VITALS: BP 114/78
[2021-04-23 15:21] LABS: BASO % 0.3 % (0.0-1.0); EOS # 0.1 10*3/uL (0.0-0.4); EOS % 1.1 % (1.0-4.0); HEMATOCRIT 35.5 % (42.0-52.0); LYMPH # 0.9 10*3/uL (1.3-4.4); LYMPH % 15.1 % (27.0-41.0); MEAN CELL VOLUME 88.5 fl (80.0-94.0); MEAN CORPUSCULAR HGB 25.4 pg (27.0-31.0); MEAN CORPUSCULAR HGB CONC 28.7 g/dl (33.0-37.0); MEAN PLATELET VOLUME 11.8 fl (9.6-12.3); MONO # 0.8 10*3/uL (0.1-1.0); NEUT # 4.3 10*3/uL (2.3-7.9); PLATELET COUNT AUTOMATED 159 10*3/uL (130-400); RED BLOOD COUNT 4.01 10*6/uL (4.50-5.90); RED CELL DISTRI WIDTH 19.1 % (0-14.5); WHITE BLOOD COUNT 6.2 10*3/uL (4.8-10.8)
[2021-04-23 15:42] LABS: ACT PARTIAL THROMBO TIME 40.1 SECONDS (20.0-32.1); INTERNATIONAL NORM RATIO 2.6 (2.0-3.5)
[2021-04-23 15:48] LABS: ALBUMIN 2.8 gm/dl (3.1-4.5); ALKALINE PHOSPHATASE 85 U/L (45-117); BUN 20 mg/dl (7-24); CHLORIDE 104 mmol/L (98-107); CREATININE 1.21 mg/dL (0.70-1.30); LIPASE 141 U/L (73-393); POTASSIUM 3.1 mmol/L (3.5-5.1); SGOT/AST 18 IU/L (3-35); SGPT/ALT 14 U/L (12-78); SODIUM 139 mmol/L (136-145); TOTAL PROTEIN 7.7 gm/dL (6.4-8.2)
[2021-04-23 15:49] LABS: TROPONIN I < 0.015 ng/ml (<0.045)
[2021-04-23 16:00] LABS: BILIRUBIN Negative (Negative); BLOOD Negative (Negative); CLARITY Clear (Clear); COLOR Yellow (Yellow); GLUCOSE 3+ (Negative); KETONE Negative (Negative); LEUKO ESTERASE Negative (Negative); NITRITE Negative (Negative); SPECIFIC GRAVITY 1.015 (1.001-1.030); UROBILINOGEN 0.2 E.U./dl (0.0-1.0)
[2021-04-23 16:34] LABS: BACTERIA TRACE; EPITHELIAL CELLS 0-2; RBC 0-2 rbc/hpf (0-2); WBC 0-2 wbc/hpf (0-5)
== END 2021-04-23 20:00 | disposition home or self-care (01) ==
LOC: ED 14:08
PROVIDERS: Physician Assistant
DX: I95.1 Orthostatic hypotension (principal); Z88.0 Allergy status to penicillin; Z79.899 Other long term (current) drug therapy; Z79.82 Long term (current) use of aspirin; Z87.891 Personal history of nicotine dependence

== ENCOUNTER → 2021-04-23 | Outpatient (CLI) | payer OTHER ==
[~2021-04-23] MED LIST changes: +LASIX40 MG PO; +LEVOTHYROXINE112 MCG PO; +TOPROL XL25 MG PO
== END | disposition home or self-care (01) ==
LOC: RESCLI 08:17
PROVIDERS: ATTEND Internal Medicine
DX: R53.82 Chronic fatigue, unspecified (principal); R19.7 Diarrhea, unspecified; E86.0 Dehydration; R63.4 Abnormal weight loss; F51.01 Primary insomnia; Z95.1 Presence of aortocoronary bypass graft; I48.91 Unspecified atrial fibrillation; F32.A Depression, unspecified; I25.10 Atherosclerotic heart disease of native coronary artery without angina pectoris; E03.9 Hypothyroidism, unspecified; E55.9 Vitamin D deficiency, unspecified; Z79.899 Other long term (current) drug therapy; Z95.0 Presence of cardiac pacemaker; Z95.5 Presence of coronary angioplasty implant and graft; Z90.49 Acquired absence of other specified parts of digestive tract; Z96.652 Presence of left artificial knee joint; Z98.890 Other specified postprocedural states

== ENCOUNTER → 2021-05-04 | Outpatient (CLI) | payer OTHER ==
[2021-05-04 11:40] LABS: INTERNATIONAL NORM RATIO 1.8 (2.0-3.5)
== END | disposition home or self-care (01) ==
LOC: LAB 01:34
PROVIDERS: Internal Medicine Cardiovascular Disease; ATTEND Internal Medicine
DX: I48.91 Unspecified atrial fibrillation (principal); Z79.01 Long term (current) use of anticoagulants

== ENCOUNTER → 2021-05-25 | Outpatient (CLI) | payer OTHER ==
[2021-05-25 11:38] LABS: INTERNATIONAL NORM RATIO 2.8 (2.0-3.5)
== END | disposition home or self-care (01) ==
LOC: LAB 00:15
PROVIDERS: ATTEND Internal Medicine Cardiovascular Disease
DX: I48.91 Unspecified atrial fibrillation (principal); Z79.01 Long term (current) use of anticoagulants

== ENCOUNTER → 2021-06-10 | Outpatient (CLI) | payer OTHER ==
[~2021-06-10] MED LIST changes: +FAMOTIDINE40 MG PO; +FUROSEMIDE40 MG PO; +JARDIANCE10 MG PO; +METOPROLOL SUCC25 M2 PO; +NYAMYC15 GM T; +PHARMASSURE V500 MCG PO; +PROAIR HFA8.5 GM INH; +WARFARIN SODIUM3 MG PO
== END | disposition home or self-care (01) ==
LOC: LAB 00:34 → RESCLI 09:40 → LAB 10:58
PROVIDERS: Internal Medicine Cardiovascular Disease; ATTEND Internal Medicine
DX: I48.91 Unspecified atrial fibrillation (principal); Z79.01 Long term (current) use of anticoagulants; J44.9 Chronic obstructive pulmonary disease, unspecified

== ENCOUNTER 2021-06-13 11:37 | Inpatient (IN) | payer OTHER ==
[~2021-06-13] VITALS: Ht 175.2 cm; Wt 77.6 kg
[~2021-06-13 11:37] MED LIST changes: -FAMOTIDINE40 MG PO; -FUROSEMIDE40 MG PO; -JARDIANCE10 MG PO; -METOPROLOL SUCC25 M2 PO; -NYAMYC15 GM T; -PHARMASSURE V500 MCG PO; -PROAIR HFA8.5 GM INH; -WARFARIN SODIUM3 MG PO
[2021-06-13 11:44] VITALS: BP 132/72
[2021-06-13 12:49] LABS: BASO % 0.2 % (0.0-1.0); EOS # 0.1 10*3/uL (0.0-0.4); EOS % 1.5 % (1.0-4.0); HEMATOCRIT 34.2 % (42.0-52.0); LYMPH # 1.1 10*3/uL (1.3-4.4); LYMPH % 17.9 % (27.0-41.0); MEAN CELL VOLUME 91.9 fl (80.0-94.0); MEAN CORPUSCULAR HGB 25.3 pg (27.0-31.0); MEAN CORPUSCULAR HGB CONC 27.5 g/dl (33.0-37.0); MONO # 0.6 10*3/uL (0.1-1.0); MONO % 10.8 % (3.0-9.0); NEUT # 4.1 10*3/uL (2.3-7.9); NEUT % 69.3 % (47.0-73.0); PLATELET COUNT AUTOMATED 132 10*3/uL (130-400); RED BLOOD COUNT 3.72 10*6/uL (4.50-5.90); RED CELL DISTRI WIDTH 19.2 % (0-14.5); WHITE BLOOD COUNT 5.9 10*3/uL (4.8-10.8)
[2021-06-13 12:58] LABS: ACT PARTIAL THROMBO TIME 34.4 SECONDS (20.0-32.1); INTERNATIONAL NORM RATIO 1.9 (2.0-3.5)
[2021-06-13 13:00] LABS: ALBUMIN 2.6 gm/dl (3.1-4.5); ALKALINE PHOSPHATASE 94 U/L (45-117); BUN 21 mg/dl (7-24); CHLORIDE 108 mmol/L (98-107); CREATININE 1.14 mg/dL (0.70-1.30); LIPASE 188 U/L (73-393); POTASSIUM 4.3 mmol/L (3.5-5.1); SGOT/AST 31 IU/L (3-35); SGPT/ALT 19 U/L (12-78); SODIUM 142 mmol/L (136-145); TOTAL PROTEIN 7.2 gm/dL (6.4-8.2)
[2021-06-13 14:10] VITALS: BP 130/70
[2021-06-13 16:40] VITALS: BP 130/70
[2021-06-13] MEDS ORDERED: METOPROLOL SUCC25 M2 PO (16:53)
[2021-06-13] MEDS ORDERED: PROAIR HFA8.5 GM INH (16:54)
[2021-06-13] MEDS ORDERED: WARFARIN SODIUM3 MG PO (16:54)
[2021-06-13] MEDS ORDERED: SERTRALINE HYDR50 MG PO (16:54)
[2021-06-13] MEDS ORDERED: LISINOPRIL2.5 MG PO (16:55)
[2021-06-13] MEDS ORDERED: PHARMASSURE V500 MCG PO (16:55)
[2021-06-13] MEDS ORDERED: FUROSEMIDE40 MG PO (16:56)
[2021-06-13] MEDS ORDERED: JARDIANCE10 MG PO (16:56)
[2021-06-13] MEDS ORDERED: FAMOTIDINE40 MG PO (16:57)
[2021-06-13 19:07] LABS: BILIRUBIN Negative (Negative); BLOOD Negative (Negative); CLARITY Clear (Clear); COLOR Yellow (Yellow); GLUCOSE 3+ (Negative); KETONE Negative (Negative); LEUKO ESTERASE Negative (Negative); NITRITE Negative (Negative); SPECIFIC GRAVITY 1.015 (1.001-1.030); UROBILINOGEN 0.2 E.U./dl (0.0-1.0)
[2021-06-13 19:13] LABS: WBC 0-2 wbc/hpf (0-5)
[2021-06-13 19:14] VITALS: BP 128/70
[2021-06-13 21:14] VITALS: BP 90/58
[2021-06-13 21:58] VITALS: BP 104/68
[2021-06-14] VITALS (8 sets, daily range): BP systolic 80–124; BP diastolic 55–71
[2021-06-14 05:48] LABS: BUN 22 mg/dl (7-24); CHLORIDE 106 mmol/L (98-107); CREATININE 0.92 mg/dL (0.70-1.30); POTASSIUM 3.8 mmol/L (3.5-5.1); SODIUM 140 mmol/L (136-145)
[2021-06-14 06:13] LABS: BASO % 0.4 % (0.0-1.0); EOS # 0.1 10*3/uL (0.0-0.4); EOS % 1.6 % (1.0-4.0); HEMATOCRIT 33.4 % (42.0-52.0); LYMPH % 18.1 % (27.0-41.0); MEAN CORPUSCULAR HGB 25.6 pg (27.0-31.0); MEAN CORPUSCULAR HGB CONC 27.8 g/dl (33.0-37.0); MEAN PLATELET VOLUME 12.8 fl (9.6-12.3); MONO # 0.8 10*3/uL (0.1-1.0); MONO % 13.7 % (3.0-9.0); NEUT # 3.7 10*3/uL (2.3-7.9); NEUT % 65.5 % (47.0-73.0); PLATELET COUNT AUTOMATED 125 10*3/uL (130-400); RED BLOOD COUNT 3.63 10*6/uL (4.50-5.90); RED CELL DISTRI WIDTH 18.9 % (0-14.5); WHITE BLOOD COUNT 5.6 10*3/uL (4.8-10.8)
[2021-06-14 06:23] LABS: INTERNATIONAL NORM RATIO 2.4 (2.0-3.5)
[2021-06-15] VITALS: BP 97/64
[2021-06-15 06:26] LABS: BASO % 0.3 % (0.0-1.0); EOS # 0.1 10*3/uL (0.0-0.4); HEMATOCRIT 34.8 % (42.0-52.0); LYMPH # 1.5 10*3/uL (1.3-4.4); LYMPH % 24.3 % (27.0-41.0); MEAN CELL VOLUME 91.6 fl (80.0-94.0); MEAN CORPUSCULAR HGB CONC 27.3 g/dl (33.0-37.0); MEAN PLATELET VOLUME 12.6 fl (9.6-12.3); MONO # 0.8 10*3/uL (0.1-1.0); MONO % 13.2 % (3.0-9.0); NEUT # 3.7 10*3/uL (2.3-7.9); NEUT % 60.7 % (47.0-73.0); PLATELET COUNT AUTOMATED 146 10*3/uL (130-400); RED CELL DISTRI WIDTH 18.9 % (0-14.5); WHITE BLOOD COUNT 6.1 10*3/uL (4.8-10.8)
[2021-06-15 06:37] LABS: INTERNATIONAL NORM RATIO 2.5 (2.0-3.5)
[2021-06-15 06:44] LABS: CHLORIDE 103 mmol/L (98-107); SODIUM 137 mmol/L (136-145)
[2021-06-15 06:58] LABS: BUN 30 mg/dl (7-24); CREATININE 1.36 mg/dL (0.70-1.30)
[2021-06-15 07:07] LABS: POTASSIUM 5.6 mmol/L (3.5-5.1)
[2021-06-15 08:19] VITALS: BP 97/63
[2021-06-15 10:34] VITALS: BP 88/54
[2021-06-15 12:09] VITALS: BP 104/61
[2021-06-15 16:00] VITALS: BP 90/74
[2021-06-15 20:00] VITALS: BP 97/59
[2021-06-16] VITALS: BP 94/65
[2021-06-16 08:40] LABS: BASO % 0.1 % (0.0-1.0); EOS % 0.1 % (1.0-4.0); HEMATOCRIT 34.4 % (42.0-52.0); LYMPH # 1.2 10*3/uL (1.3-4.4); LYMPH % 17.5 % (27.0-41.0); MEAN CORPUSCULAR HGB 25.7 pg (27.0-31.0); MEAN CORPUSCULAR HGB CONC 28.2 g/dl (33.0-37.0); MEAN PLATELET VOLUME 12.4 fl (9.6-12.3); MONO # 0.7 10*3/uL (0.1-1.0); MONO % 10.6 % (3.0-9.0); NEUT # 4.7 10*3/uL (2.3-7.9); PLATELET COUNT AUTOMATED 125 10*3/uL (130-400); RED BLOOD COUNT 3.78 10*6/uL (4.50-5.90); RED CELL DISTRI WIDTH 19.1 % (0-14.5); WHITE BLOOD COUNT 6.7 10*3/uL (4.8-10.8)
[2021-06-16 08:49] LABS: INTERNATIONAL NORM RATIO 2.8 (2.0-3.5)
[2021-06-16 09:00] VITALS: BP 94/52
[2021-06-16 09:07] LABS: CREATININE 1.54 mg/dL (0.70-1.30); POTASSIUM 5.5 mmol/L (3.5-5.1)
[2021-06-16 12:25] VITALS: BP 99/61
[2021-06-16 16:00] VITALS: BP 96/61
[2021-06-16 20:00] VITALS: BP 85/54
[2021-06-17] VITALS: BP 87/55
[2021-06-17 04:25] LABS: BASO % 0.1 % (0.0-1.0); EOS % 0.3 % (1.0-4.0); HEMATOCRIT 36.1 % (42.0-52.0); LYMPH # 1.7 10*3/uL (1.3-4.4); MEAN CELL VOLUME 90.5 fl (80.0-94.0); MEAN CORPUSCULAR HGB 25.6 pg (27.0-31.0); MEAN CORPUSCULAR HGB CONC 28.3 g/dl (33.0-37.0); MEAN PLATELET VOLUME 12.3 fl (9.6-12.3); MONO % 11.1 % (3.0-9.0); NEUT % 68.7 % (47.0-73.0); PLATELET COUNT AUTOMATED 131 10*3/uL (130-400); RED BLOOD COUNT 3.99 10*6/uL (4.50-5.90); RED CELL DISTRI WIDTH 18.9 % (0-14.5); WHITE BLOOD COUNT 8.7 10*3/uL (4.8-10.8)
[2021-06-17 04:36] LABS: CREATININE 1.77 mg/dL (0.70-1.30); POTASSIUM 4.8 mmol/L (3.5-5.1)
[2021-06-17 07:32] LABS: INTERNATIONAL NORM RATIO 3.6 (2.0-3.5)
[2021-06-17 08:00] VITALS: BP 99/58
[2021-06-17 12:00] VITALS: BP 95/57
[2021-06-17 16:00] VITALS: BP 115/81
[2021-06-17 20:00] VITALS: BP 90/70
[2021-06-18] VITALS: BP 106/75
[2021-06-18 06:35] LABS: BASO % 0.1 % (0.0-1.0); EOS % 0.1 % (1.0-4.0); HEMATOCRIT 33.8 % (42.0-52.0); LYMPH # 1.2 10*3/uL (1.3-4.4); LYMPH % 17.8 % (27.0-41.0); MEAN CELL VOLUME 91.4 fl (80.0-94.0); MEAN CORPUSCULAR HGB 25.7 pg (27.0-31.0); MEAN CORPUSCULAR HGB CONC 28.1 g/dl (33.0-37.0); MONO # 1.3 10*3/uL (0.1-1.0); MONO % 19.2 % (3.0-9.0); NEUT # 4.2 10*3/uL (2.3-7.9); NEUT % 62.4 % (47.0-73.0); NUCLEATED RED BLOOD CELL 0.3 % (0.0-0.0); PLATELET COUNT AUTOMATED 124 10*3/uL (130-400); WHITE BLOOD COUNT 6.8 10*3/uL (4.8-10.8)
[2021-06-18 06:48] LABS: CREATININE 1.87 mg/dL (0.70-1.30); POTASSIUM 4.8 mmol/L (3.5-5.1)
[2021-06-18 08:00] VITALS: BP 78/50; BP 96/56
[2021-06-18 10:25] LABS: INTERNATIONAL NORM RATIO 4.5 (2.0-3.5)
[2021-06-18 11:50] VITALS: BP 92/64
[2021-06-18 12:00] VITALS: BP 98/62
[2021-06-18 16:00] VITALS: BP 93/62
[2021-06-18 20:00] VITALS: BP 99/78
[2021-06-19] VITALS: BP 133/65
[2021-06-19 06:20] LABS: HEMATOCRIT 34.4 % (42.0-52.0); MEAN CELL VOLUME 89.8 fl (80.0-94.0); MEAN CORPUSCULAR HGB 25.6 pg (27.0-31.0); MEAN CORPUSCULAR HGB CONC 28.5 g/dl (33.0-37.0); NUCLEATED RED BLOOD CELL 0.1 10*3/uL (0.0-0.0); NUCLEATED RED BLOOD CELL 0.7 % (0.0-0.0); PLATELET COUNT AUTOMATED 147 10*3/uL (130-400); RED BLOOD COUNT 3.83 10*6/uL (4.50-5.90); RED CELL DISTRI WIDTH 19.6 % (0-14.5); WHITE BLOOD COUNT 9.1 10*3/uL (4.8-10.8)
[2021-06-19 06:26] LABS: CREATININE 2.12 mg/dL (0.70-1.30); POTASSIUM 5.4 mmol/L (3.5-5.1)
[2021-06-19 07:15] LABS: TOTAL CELLS COUNTED 100 #CELLS
[2021-06-19 07:16] LABS: OVALOCYTES FEW; PLATELET SUFFICIENCY NORMAL (NORMAL); POLYCHROMASIA SLIGHT
[2021-06-19 08:00] VITALS: BP 99/62
[2021-06-19 08:09] LABS: INTERNATIONAL NORM RATIO 5.7 (2.0-3.5)
[2021-06-19] MEDS ORDERED: WARFARIN SODIUM3 MG PO ×2 (10:05→11:03)
[2021-06-19] MEDS ORDERED: LISINOPRIL2.5 MG PO ×2 (10:05→11:05)
[2021-06-19] MEDS ORDERED: LASIX40 MG PO ×2 (10:05→11:05)
[2021-06-22] MEDS ORDERED: NYAMYC15 GM T (11:36)
== END 2021-06-19 12:23 | disposition hospice, home (50) | DRG 291 ==
LOC: ED 11:37 → 4E 14:39 → EDHOLD 14:39 → 4E 06-14 07:21
PROVIDERS: Physician Assistant; Registered Nurse; Student in an Organized Health Care Education/Training Program; ADMIT Internal Medicine; ATTEND Internal Medicine
PROC: BD1BYZZ Fluoroscopy of Mouth/Oropharynx using Other Contrast (ICD-10-PCS; principal; 2021-06-16)
DX: I13.0 Hypertensive heart and chronic kidney disease with heart failure and stage 1 through stage 4 chronic kidney disease, or unspecified chronic kidney disease (principal); I50.23 Acute on chronic systolic (congestive) heart failure; J96.21 Acute and chronic respiratory failure with hypoxia; E43 Unspecified severe protein-calorie malnutrition; N17.0 Acute kidney failure with tubular necrosis; N18.32 Chronic kidney disease, stage 3b; Z51.5 Encounter for palliative care; Z66 Do not resuscitate; I48.91 Unspecified atrial fibrillation; E87.8 Other disorders of electrolyte and fluid balance, not elsewhere classified; D64.9 Anemia, unspecified; E11.65 Type 2 diabetes mellitus with hyperglycemia; E78.5 Hyperlipidemia, unspecified; K21.9 Gastro-esophageal reflux disease without esophagitis; N40.0 Benign prostatic hyperplasia without lower urinary tract symptoms; I25.10 Atherosclerotic heart disease of native coronary artery without angina pectoris; E03.9 Hypothyroidism, unspecified; Z95.810 Presence of automatic (implantable) cardiac defibrillator; Z88.0 Allergy status to penicillin; Z88.8 Allergy status to other drugs, medicaments and biological substances; Z79.01 Long term (current) use of anticoagulants; Z68.25 Body mass index [BMI] 25.0-25.9, adult

== ENCOUNTER 2021-07-17 19:45 | Emergency (ER) | payer OTHER ==
[~2021-07-17 19:45] MED LIST changes: +FAMOTIDINE40 MG PO; +FUROSEMIDE40 MG PO; +JARDIANCE10 MG PO; +METOPROLOL SUCC25 M2 PO; +NYAMYC15 GM T; +PHARMASSURE V500 MCG PO; +PROAIR HFA8.5 GM INH; +WARFARIN SODIUM3 MG PO
[2021-07-17] MEDS ORDERED: HYDROCODONE-AC1 EAC1 PO (21:40)
[2021-07-17] MEDS ORDERED: MIRALAX POWDER17 G1 PO ×2 (22:19)
[2021-07-18 05:36] VITALS: BP 94/52
[2021-07-18] MEDS ORDERED: MIRALAX POWDER17 G1 PO (08:52)
== END 2021-07-18 09:03 | disposition home or self-care (01) ==
LOC: ED 19:45
DX: K59.00 Constipation, unspecified (principal); Z88.0 Allergy status to penicillin; Z79.899 Other long term (current) drug therapy; Z98.890 Other specified postprocedural states; Z90.49 Acquired absence of other specified parts of digestive tract; Z87.891 Personal history of nicotine dependence; Z95.1 Presence of aortocoronary bypass graft